=== PATIENT | female | born 1960 | race Caucasian/White ===

== ENCOUNTER 2022-02-22 09:00 | Outpatient (RCR) | payer MEDICARE, MEDICAID, SELFPAY ==
--- NOTE | 2022-02-18 11:44 | ONC.NURNOTE ---
Authorization: User: Asia Donnelly Jorgemigueljacinto Date: 05/01/21 09:28 Type: Eligibility Determination Note... Request received from [facility] for continued authorization of Actemra [id number]. Patient carries Medicare as primary insurance. Per CMS.gov no prior authorization is required for Actemra. Services are based on medical necessity and follows Medicare guidelines.
[2022-02-22 09:19] VITALS: BP 116/78; PULSE 90; RESP 16; TEMP 36.6; O2SAT 97
[2022-02-22] MEDS: SODIUM CHLORIDE 0.9 % (FLUSH) 10 ML SYRINGE IVF (10:00)
[2022-02-22] MEDS: 0.9 % SODIUM CHLORIDE 250 ml IV (10:00)
== END 2022-03-10 23:59 | disposition home or self-care (01) ==
LOC: CCIC 09:00
PROVIDERS: PCP Physician Assistant Medical; Visit Provider Clinical Nurse Specialist
DX: M06.9 Rheumatoid arthritis, unspecified (principal)
CPT/HCPCS: 96413; J3262; J7050

== ENCOUNTER 2022-03-25 09:32 | Emergency (ER) | payer MEDICARE, MEDICAID, SELFPAY ==
[2022-03-25] VITALS (8 sets, daily range): BP systolic 109–132; BP diastolic 70–92; PULSE 83–103; RESP 18–24; TEMP 36.8; O2SAT 94–97; BMI 33.1
[2022-03-25] MEDS: 0.9 % SODIUM CHLORIDE 1000 ml 1,000 ML 6000 ML IV (10:18)
[2022-03-25] MEDS: diphenhydrAMINE 50 MG/ML inj 25 MG IVP (10:20)
[2022-03-25] MEDS: METHYLPREDNISOLONE SOD SUCC 62.5 MG/ML (125) 125 MG IVP (10:24)
--- NOTE | 2022-03-25 10:31 | ED_ITS ---
HPI - General Adult General Time Seen by Provider: 10:31 Date Seen: 03/25/22 Chief complaint: Allergic Reaction Stated complaint: Allergic reaction Time Seen by Provider: 03/25/22 10:04 Source: patient Mode of arrival: ambulatory Limitations: no limitations History of Present Illness HPI narrative: Patient is a 7-year-old female with multiple allergies, who had an MRI scheduled today, got MRI scan dye and started getting some throat symptoms tongue symptoms and a little bit a rash around her neck. No other specific complaints does not really have significant breathing problem, no chest pain, no other weakness or neurologic complaint. She is presents over the ER, an IV line was started, patient is given IV Benadryl which he tolerates and IV Solu-Medrol which she has tolerated the past as well. She does take prednisone 7.5 mg daily. Related Data Home Medications Medication Instructions Recorded Confirmed acetaminophen 500 mg capsule 1,000 mg PO Q6H PRN 02/21/22 02/21/22 alprazolam 0.25 mg tablet 0.5 mg PO BID PRN anxiety 02/21/22 02/21/22 ascorbic acid (vitamin C) 500 mg 1,000 mg PO DAILY 02/21/22 02/21/22 capsule blood sugar diagnostic ([facility] 02/21/22 02/21/22 Ultra Test strips) epinephrine 0.3 mg/0.3 mL 0.3 ml IM Q5-15M PRN 02/21/22 02/21/22 injection, auto-injector erythromycin 5 mg/gram (0.5 %) eye 1 applic ophthalmic (eye) .QHS 02/21/22 02/21/22 ointment estradiol 1 mg tablet 1 mg PO DAILY 02/21/22 02/21/22 folic acid 1 mg tablet 1 mg PO DAILY 02/21/22 02/21/22 ibuprofen 800 mg tablet 800 mg PO TID-QID PRN 02/21/22 02/21/22 [facility]ets [facility]/21/22 02/21/22 Plus Lancet) latanoprost 0.005 % eye drops 1 drp ophthalmic (eye) .qhs 02/21/22 02/21/22 metformin 500 mg tablet,extended 500 mg PO BID 02/21/22 02/21/22 release 24 hr methotrexate sodium 25 mg/mL 25 mg subcut .WEEKLY 02/21/22 02/21/22 injection solution multivitamin 1 tab PO DAILY 02/21/22 02/21/22 nystatin 100,000 unit/gram topical 1 applic topical BID 02/21/22 02/21/22 cream pantoprazole 40 mg tablet,delayed 40 mg PO .Q 24 02/21/22 02/21/22 release prednisone 5 mg tablet 7.5 mg PO DAILY 02/21/22 02/21/22 rosuvastatin 10 mg tablet 10 mg PO .QHS 02/21/22 02/21/22 carbamazepine 200 mg 200 mg PO BID 03/22/22 03/22/22 capsule,extended release [id number] Allergies Allergy/AdvReac Type Severity Reaction Status Date / Time abatacept Allergy Verified 03/25/22 08:37 adalimumab Allergy Verified 03/25/22 08:37 benzyl alcohol Allergy Verified 03/25/22 08:37 bisacodyl Allergy Verified 03/25/22 08:37 bupropion Allergy Verified 03/25/22 08:37 cyclobenzaprine Allergy Verified 03/25/22 08:37 diazepam Allergy Verified 03/25/22 08:37 diphenhydramine Allergy Verified 03/25/22 08:37 duloxetine Allergy Verified 03/25/22 08:37 etanercept Allergy Verified 03/25/22 08:37 gadoterate meglumine Allergy Difficulty Verified 03/25/22 09:52 [From Dotarem] Breathing hydromorphone Allergy Verified 03/25/22 08:37 meperidine Allergy Verified 03/25/22 08:37 morphine Allergy Verified 03/25/22 08:37 oxycodone Allergy Verified 03/25/22 08:37 pregabalin Allergy Verified 03/25/22 08:37 red dye Allergy Verified 03/25/22 08:37 rituximab Allergy Verified 03/25/22 08:37 tromethamine Allergy Verified 03/25/22 08:37 varicella virus vaccine live Allergy Verified 03/25/22 08:37 CI pigment Blue 63 Allergy Uncoded 02/21/22 10:37 Review of Systems Status of ROS: Reports: 6 or more systems reviewed and unremarkable except as noted in History and below [facility] Medical History (Updated 03/25/22 @ 10:34 by Perry Day MD) Abdominal pain Anxiety Atypical chest pain Cephalgia Chronic pain Chronic steroid use Drug allergy, multiple Drug-induced hyperglycemia Dyspnea on exertion Encounter for cholecystectomy Fibromyalgia Fusion of lumbar spine GERD (gastroesophageal reflux disease) Incarcerated umbilical hernia Lumbar radiculopathy Medication intolerance Non-occlusive coronary artery disease Rheumatoid arthritis Serotonin syndrome Syncope Tachycardia Thoracic back pain Surgical History (Updated 02/21/22 @ 21:34 by Sandy Contreras APRN) History of biopsy of temporal artery History of hernia repair History of tonsillectomy Hx of breast reduction, elective S/P lumpectomy of breast S/P DANIELA-BSO Social History Smoking Status: Former smoker How often do you have a drink containing alcohol: never AUDIT-C Alcohol total score: 0 Non-prescribed substance use: denies use Exam Narrative: Exam Narrative: Objective: Patient is alert orient x3, noncyanotic HEENT is unremarkable no tongue swelling, no throat tightening Lungs are clear Good peripheral perfusion noted, patient is alert or x3 in no distress Vital signs show an O2 sat 97% on room air Skin is warm and dry no significant rashes Const: Vital Signs, click to edit/add: Vital Signs - 24 hr 03/25/22 09:39 03/25/22 10:33 03/25/22 10:15 Temperature 98.2 F Pulse Rate [Apical ] 103 H 96 87 Respiratory Rate 24 18 18 Blood Pressure [Ri ght Upper Arm] 132/92 H 130/87 123/88 Pulse Oximetry 97 97 94 Oxygen Delivery Me thod Room Air Room Air Room Air 03/25/22 10:00 03/25/22 09:45 03/25/22 10:45 Temperature Pulse Rate [Apical ] 91 99 83 Respiratory Rate 18 18 Blood Pressure [Ri ght Upper Arm] 109/90 H 125/91 H 121/70 Pulse Oximetry 95 96 95 Oxygen Delivery Me thod Room Air Room Air Room Air 03/25/22 11:15 03/25/22 11:30 Temperature Pulse Rate [Apical ] 84 87 Respiratory Rate 20 Blood Pressure [Ri ght Upper Arm] 112/71 125/79 Pulse Oximetry 95 95 Oxygen Delivery Me thod Room Air Room Air Course Vital Signs Vital signs: Initial Vital Signs Temperature 98.2 F 03/25/22 09:39 Temperature Source Temporal Artery Scan 03/25/22 09:39 Pulse Rate 103 H 03/25/22 09:39 Pulse Rhythm 03/25/22 09:39 Respiratory Rate 24 03/25/22 09:39 Blood Pressure 132/92 H 03/25/22 09:39 Blood Pressure Mean 105 03/25/22 09:39 Pulse Oximetry 97 03/25/22 09:39 Oxygen Delivery Method 03/25/22 09:39 Vital Signs Temperature 98.2 F 03/25/22 09:39 Pulse Rate 103 H 03/25/22 09:39 Respiratory Rate 24 03/25/22 09:39 Blood Pressure 132/92 H 03/25/22 09:39 Pulse Oximetry 97 03/25/22 09:39 Oxygen Delivery Method 03/25/22 09:39 Temperature 98.2 F 03/25/22 09:39 Pulse Rate 87 03/25/22 11:30 Respiratory Rate 20 03/25/22 11:15 Blood Pressure 125/79 03/25/22 11:30 Pulse Oximetry 95 03/25/22 11:30 Oxygen Delivery Method 03/25/22 11:30 Medical Decision Making MDM Narrative Medical decision making narrative: Patient has a history of significant allergies, potentially is allergic to the contrast media in the MRI, will give Solu-Medrol and Benadryl now IV. She apparently does not tolerate Benadryl orally. She can double her prednisone dose for 2-3 days and then return to normal dosing, will observe her in the ED for a period of time. Discharge Plan Discharge Clinical Impression: Drug allergy, multiple, Allergic reaction Patient Disposition: Home w/ Parent or Adult Condition: Improved Additional Instructions: Would have the patient double her normal steroid dose for 2-3 days and then return to normal dosing. Update her regular physician as needed, return to the ED as needed. She lives close the hospital in is able to return with good assistance in her home. She has had no further issues. She was doing MRI for headache and numbness, and they were able to complete the MRI. Activity Level: Light activity Discharge Diet: Regular Prescriptions: No Action carbamazepine 200 mg capsule, ER multiphase 12 hr 200 mg PO BID alprazolam 0.25 mg tablet 0.5 mg PO BID PRN (Reason: anxiety) Label Comments: TAKE 1 TO 2 TABLETS BY MOUTH TWICE DAILY NEEDED FOR ANXIETY (DME) OneTouch Ultra Test Strip MISCELLANEOUS Label Comments: TEST FOUR TIMES DAILY estradiol 1 mg tablet 1 mg PO DAILY folic acid 1 mg tablet 1 mg PO DAILY Label Comments: TAKE 1 TABLET BY MOUTH DAILY. latanoprost 0.005 % drops 1 drp OPHTHALMIC (EYE) .qhs Label Comments: INSTILL 1 DROP IN EACH EYE AT BEDTIME (DME) lancets [OneTouch Delica Plus Lancet] 33 gauge misc MISCELLANEOUS Label Comments: TEST FOUR TIMES DAILY metformin 500 mg tablet extended release 24 hr 500 mg PO BID Label Comments: TWICE A DAY WITH MEALS methotrexate sodium 25 mg/mL solution 25 mg subcut .WEEKLY nystatin 100,000 unit/gram cream 1 applic TOPICAL BID Label Comments: APPLY TOPICALLY TO THE AFFECTED AREA TWICE DAILY pantoprazole 40 mg tablet,delayed release (DR/EC) 40 mg PO .Q 24 Label Comments: TAKE 1 TABLET BY MOUTH TWICE DAILY BEFORE MEALS prednisone 5 mg tablet 7.5 mg PO DAILY rosuvastatin 10 mg tablet 10 mg PO .QHS multivitamin Tablet 1 tab PO DAILY ibuprofen 800 mg tablet 800 mg PO TID-QID PRN acetaminophen 500 mg capsule 1,000 mg PO Q6H PRN ascorbic acid (vitamin C) 500 mg capsule 1,000 mg PO DAILY epinephrine 0.3 mg/0.3 mL auto-injector 0.3 ml IM Q5-15M PRN Rx Instructions: do not exceed 3 doses per episode erythromycin 5 mg/gram (0.5 %) ointment 1 applic ophthalmic (eye) .QHS Follow Up/Referrals: Amarilys Duckworth PA-C [Primary Care Provider] - Stand Alone [facility]
== END 2022-03-25 11:49 | disposition home or self-care (01) ==
PROVIDERS: Emergency Provider Family Medicine; PCP Physician Assistant Medical
DX: T78.40XA Allergy, unspecified, initial encounter (principal); R51.9 Headache, unspecified
CPT/HCPCS: 70553; 96374; 96375; 99284; J1200; J2930; J7030

== ENCOUNTER 2022-06-19 09:00 | Outpatient (RCR) | payer MEDICARE, MEDICAID, SELFPAY ==
[2022-03-22 09:00] VITALS: BP 128/84; PULSE 91; RESP 16; TEMP 36.1; O2SAT 97
--- NOTE | 2022-03-22 15:23 | ONC.NURNOTE ---
[facility].
[2022-04-19 09:02] VITALS: BP 123/83; PULSE 89; RESP 16; TEMP 35.9; O2SAT 97
[2022-04-19] MEDS: SODIUM CHLORIDE 0.9 % (FLUSH) 10 ML SYRINGE IVF (09:26)
--- NOTE | 2022-04-24 11:25 | URNOTE ---
Received request prior auth for Actemra ([id number]). Pt has medicare and [facility] [place]. Per [employer] on behalf of [facility], this has been approved, Actemra 80mg/4ml vial, 686mg administered for frequency of 4 week, 120.050 units (14 doses). 04/25/2022-.
[2022-05-22 10:00] VITALS: BP 139/90; PULSE 76; RESP 14; TEMP 36.1; O2SAT 96
[2022-05-22] MEDS: SODIUM CHLORIDE 0.9 % (FLUSH) 10 ML SYRINGE IVF (13:57)
[2022-06-19 09:05] VITALS: BP 120/83; PULSE 79; RESP 16; TEMP 36.1; O2SAT 95
[2022-06-19] MEDS: 0.9 % SODIUM CHLORIDE 500 ML IV (10:03)
[2022-06-19 10:30] VITALS: BP 150/102; PULSE 100; RESP 24; TEMP 36.1; O2SAT 98
[2022-06-19] MEDS: METHYLPREDNISOLONE SOD SUCC 62.5 MG/ML (125) 100 MG IVP (10:30)
[2022-06-19] MEDS: 0.9 % SODIUM CHLORIDE 1000 ml 1,000 ML 200 ML IV (10:30)
[2022-06-19 10:33] VITALS: BP 158/88
[2022-06-19] MEDS: ONDANSETRON 2 MG/ML inj 4 MG IVP (10:33)
[2022-06-19 10:35] VITALS: BP 139/95; PULSE 84; RESP 20; O2SAT 98
[2022-06-19] MEDS: HYDROmorphone 0.5 mg/0.5 ml inj 0.2 MG IVP (10:40)
[2022-06-19 10:42] VITALS: BP 132/92; PULSE 90; RESP 22; O2SAT 96
[2022-06-19 11:14] VITALS: BP 134/85; PULSE 87; O2SAT 96
--- NOTE | 2022-06-19 15:17 | PC.NURSE ---
Actemra reaction Pt was present at [facility] today for Actemra infusion. Pt hasn't been getting pre-meds and has been tolerating it very well. After chart review and double check, the infusion was started. RN circled back to check in about 10 minutes into the infusion and pt was having severe pain from her waist up. Pt was visibly distraught and couldn't sit still due to the intense pain. Infusion was stopped and normal saline was started on new tubing. Vital signs obtained (see flowsheet). [facility] senior staff psychologist's to assist along with Sandy Contreras APRN. Reviewed orders. Noted order for solu-medrol as needed. Called pharmacy and received a dose of 100 mg which was given. See MAR. ORLANDO Delgado also gave orders for Zofran and Dilaudid to be given to manage pt's pain and adverse reaction to narcotics. After about 15 minutes pt calmed down and her pain subsided. Pt's was at her bedside. RN reached out to the rheumatology office at [facility] attempting to communicate this situation with Jamie López NP, ordering provider. Provided detailed info to the staff who answered my call. Multiple messages were given to the [employer], however, this blurb writer did not get a call back. Ultimately, RN was told by the phone answering staff that Jamie López NP recommended not proceeding with further infusion today. IV was removed and patient was discharged. This blurb writer called back with questions about when to do next infusion and whether or not to do pre-medications. Did not receive a call back. At 1520, called again and asked that Jamie López NP or her direct care staffer call and provide pt with next steps and instructions. They verbalized that they would take it from here. Carol Evans RN
--- NOTE | 2022-06-24 09:38 | PC.NURSE ---
Called pt today to check in after her infusion reaction last week. LM on pt's primary line inviting her to call back with updates. RN also inquired about whether or not pt had heard from [facility] with regards to next steps with her infusions.
--- NOTE | 2022-07-02 09:27 | ONC.NURNOTE ---
Pt called today stating she saw her paver operator yesterday and she will not be receiving any more Actemra infusions at this time.
== END 2022-09-18 23:59 | disposition home or self-care (01) ==
LOC: CCIC 09:00
PROVIDERS: PCP Physician Assistant Medical; Referring Provider Physician Assistant Medical; Visit Provider Clinical Nurse Specialist
DX: M06.9 Rheumatoid arthritis, unspecified (principal); T78.40XA Allergy, unspecified, initial encounter; Z88.9 Allergy status to unspecified drugs, medicaments and biological substances
CPT/HCPCS: 96361; 96365; 96366; 96376; 96413; 99211; 99214; J1170; J2405; J2930; J3262; J7030; J7120

== ENCOUNTER 2022-08-24 14:52 | Outpatient (CLI) | payer MEDICARE, MEDICAID, SELFPAY | END 2022-08-24 14:53 | disposition home or self-care (01) | LOC: AMB 08-25 00:51 | PROVIDERS: PCP Physician Assistant Medical; Visit Provider Emergency Medicine Emergency Medical Services | DX: S39.92XA Unspecified injury of lower back, initial encounter (principal); W10.9XXA Fall (on) (from) unspecified stairs and steps, initial encounter; Y92.008 Other place in unspecified non-institutional (private) residence as the place of occurrence of the external cause | CPT/HCPCS: A0425; A0433 ==

== ENCOUNTER 2022-08-24 15:30 | Emergency (ER) | payer MEDICARE, MEDICAID, SELFPAY ==
[2022-08-24] VITALS (7 sets, daily range): BP systolic 101–106; BP diastolic 60–77; PULSE 89–110; RESP 16–20; TEMP 35.8; O2SAT 91–97; BMI 34.2
--- NOTE | 2022-08-24 16:28 | CRLHL7_ITS ---
For Patients: As a result of the Cures Act, medical imaging exams and procedure reports are released immediately into your electronic medical record. You may view this report before your referring provider. If you have questions, please contact your health care provider. INDICATION: Fall. COMPARISON: 24 June 2022. TECHNIQUE: Two views. IMPRESSION: New from comparison superior endplate compression fracture L1 with less than 50 percent height loss. No posterior buckling. Pedicle antoinette and screw fixation L3-4. Interbody implants L4-5 and L5-S1. No hardware complication. Dictated by Suman Schwartz MD @ 08/24/2022 5:27:04 PM (Electronically Signed)
--- NOTE | 2022-08-24 16:28 | CRLHL7_ITS ---
For Patients: As a result of the Cures Act, medical imaging exams and procedure reports are released immediately into your electronic medical record. You may view this report before your referring provider. If you have questions, please contact your health care provider. INDICATION: Fall. TECHNIQUE: One view pelvis. IMPRESSION: No acute fracture. Moderate degenerative arthrosis symphysis pubis. Hips are appropriately aligned. Dictated by Suman Schwartz MD @ 08/24/2022 5:29:47 PM (Electronically Signed)
--- NOTE | 2022-08-24 16:30 | ED_ITS ---
HPI - Fall General Chief Complaint: Fall/Minor Trauma Stated Complaint: Traumatic injury Time Seen by Provider: 08/24/22 15:36 History of Present Illness HPI Narrative: This 62-year-old female comes in with right posterior low back pain and pelvis pain. She was coming down steps and states that her knee gave out on the last step. She fell onto her buttocks. She did not hit her head or have loss of consciousness. She has not been up to ambulate since this fall and has significant pain in her right low back and pelvis posteriorly. She is able to raise each leg from the bed. She does not report any other injury. Related Data Home Medications Medication Instructions Recorded Confirmed acetaminophen 500 mg capsule 1,000 mg PO Q6H PRN 02/21/22 08/24/22 alprazolam 0.25 mg tablet 0.5 mg PO BID PRN anxiety 02/21/22 08/24/22 ascorbic acid (vitamin C) 500 mg 1,000 mg PO DAILY 02/21/22 08/24/22 capsule blood sugar diagnostic ([facility] 02/21/22 02/21/22 Ultra Test strips) epinephrine 0.3 mg/0.3 mL 0.3 ml IM Q5-15M PRN 02/21/22 08/24/22 injection, auto-injector erythromycin 5 mg/gram (0.5 %) eye 1 applic ophthalmic (eye) .QHS 02/21/22 08/24/22 ointment estradiol 1 mg tablet 1 mg PO DAILY 02/21/22 08/24/22 folic acid 1 mg tablet 1 mg PO DAILY 02/21/22 08/24/22 ibuprofen 800 mg tablet 800 mg PO TID-QID PRN 02/21/22 08/24/22 lancets 33 gauge ([facility] 02/21/22 02/21/22 Plus Lancet) latanoprost 0.005 % eye drops 1 drp ophthalmic (eye) .qhs 02/21/22 08/24/22 metformin 500 mg tablet,extended 500 mg PO BID 02/21/22 08/24/22 release 24 hr methotrexate sodium 25 mg/mL 25 mg subcut .WEEKLY 02/21/22 08/24/22 injection solution multivitamin 1 tab PO DAILY 02/21/22 08/24/22 nystatin 100,000 unit/gram topical 1 applic topical BID 02/21/22 08/24/22 cream pantoprazole 40 mg tablet,delayed 40 mg PO .Q 24 02/21/22 08/24/22 release prednisone 5 mg tablet 7.5 mg PO DAILY 02/21/22 08/24/22 rosuvastatin 10 mg tablet 10 mg PO .QHS 02/21/22 08/24/22 carbamazepine 200 mg 200 mg PO BID 03/22/22 08/24/22 capsule,extended release [id number] Previous Rx's Medication Instructions Recorded tramadol 50 mg tablet 50 mg PO Q6H PRN pain #15 tabs 08/24/22 Allergies Allergy/AdvReac Type Severity Reaction Status Date / Time abatacept Allergy Verified 08/24/22 15:44 adalimumab Allergy Verified 08/24/22 15:44 benzyl alcohol Allergy Verified 08/24/22 15:44 bisacodyl Allergy Verified 08/24/22 15:44 bupropion Allergy Verified 08/24/22 15:44 carbamazepine Allergy Cramping Verified 08/24/22 15:44 of the Muscles cyclobenzaprine Allergy Verified 08/24/22 15:44 diazepam Allergy Verified 08/24/22 15:44 diphenhydramine Allergy Verified 08/24/22 15:44 duloxetine Allergy Verified 08/24/22 15:44 etanercept Allergy Verified 08/24/22 15:44 gadoterate meglumine Allergy Difficulty Verified 08/24/22 15:44 [From Dotarem] Breathing hydromorphone Allergy Verified 08/24/22 15:44 meperidine Allergy Verified 08/24/22 15:44 morphine Allergy Verified 08/24/22 15:44 oxycodone Allergy Verified 08/24/22 15:44 pregabalin Allergy Verified 08/24/22 15:44 red dye Allergy Verified 08/24/22 15:44 rituximab Allergy Verified 08/24/22 15:44 tromethamine Allergy Verified 08/24/22 15:44 varicella virus vaccine live Allergy Verified 08/24/22 15:44 Review of Systems Status of ROS: Reports: 10 or more systems reviewed and unremarkable except as noted in History and below Narrative: Constitutional: No fevers, no weight gain or loss. Eyes: No discharge. No vision changes. HENT: No congestion, no sore throat, no ear pain. Cardiovascular: No chest pain, no palpitations. Respiratory: No shortness of breath, no wheezes, no cough. Gastrointestinal: No abdominal pain, no vomiting, no diarrhea. Genitourinary: No dysuria, no hematuria. Musculoskeletal: Low back and pelvis pain as described above. Skin: No rashes, no pruritis. Neurological: No dizziness, weakness, sensory change, speech change. Endo/Heme/Allergies: No bruising or bleeding. No polydipsia. Pysch: no suicidality, no anxiety, no insomnia. All other systems reviewed and are negative. [facility] Medical History (Updated 08/24/22 @ 18:19 by Lukasz Jim MD) Abdominal pain Anxiety Atypical chest pain Cephalgia Chronic pain Chronic steroid use Drug allergy, multiple Drug-induced hyperglycemia Dyspnea on exertion Encounter for cholecystectomy Fibromyalgia Fusion of lumbar spine GERD (gastroesophageal reflux disease) Incarcerated umbilical hernia Lumbar radiculopathy Medication intolerance Non-occlusive coronary artery disease Rheumatoid arthritis Serotonin syndrome Syncope Tachycardia Thoracic back pain Surgical History (Updated 02/21/22 @ 21:34 by Sandy Contreras APRN) History of biopsy of temporal artery History of hernia repair History of tonsillectomy Hx of breast reduction, elective S/P lumpectomy of breast S/P DANIELA-BSO Social History Smoking Status: Former smoker How often do you have a drink containing alcohol: never AUDIT-C Alcohol total score: 0 Non-prescribed substance use: denies use Exam Narrative: Exam Narrative: Constitutional: Well-developed, well-nourished, no acute distress. HEENT: Normocephalic, atraumatic. Neck: Normal range of motion. Nontender. Supple. Heart: Regular. No murmurs. Normal rate. Intact distal pulses. Lungs: Clear to auscultation. No chest discomfort. No wheezes, rhonchi, or rales. Abdomen: Normal bowel sounds. Nontender. No rebound tenderness. Genitalia: Deferred. Back: No midline tenderness. Pain is located in the right low back and buttock region. No pain when log-rolling either leg. She is able to lift each leg from the bed. Extremities: Normal range of motion. No injury. Skin: Intact. No rash. Warm. No erythema or pallor. Neurologic: No altered sensation. No weakness. Alert and oriented. Psychiatric: No suicidality. No anxiety or depression. No insomnia. Nursing notes and vitals signs are reviewed. Const: Vital Signs, click to edit/add: Vital Signs - 24 hr 08/24/22 15:36 Temperature 96.5 F L Pulse Rate [Left P ulse Oximeter] 93 Respiratory Rate 20 Blood Pressure [Ri ght Upper Arm] 106/77 Pulse Oximetry 94 Oxygen Delivery Me thod Room Air Course Vital Signs Vital signs: Initial Vital Signs Temperature 96.5 F L 08/24/22 15:36 Temperature Source Temporal Artery Scan 08/24/22 15:36 Pulse Rate 93 08/24/22 15:36 Respiratory Rate 20 08/24/22 15:36 Blood Pressure 106/77 08/24/22 15:36 Blood Pressure Mean 86 08/24/22 15:36 Blood Pressure Position Left Lateral 08/24/22 15:36 Pulse Oximetry 94 08/24/22 15:36 Oxygen Delivery Method 08/24/22 15:36 Vital Signs Temperature 96.5 F L 08/24/22 15:36 Pulse Rate 93 08/24/22 15:36 Respiratory Rate 20 08/24/22 15:36 Blood Pressure 106/77 08/24/22 15:36 Pulse Oximetry 94 08/24/22 15:36 Oxygen Delivery Method 08/24/22 15:36 Temperature 96.5 F L 08/24/22 15:36 Pulse Rate 93 08/24/22 15:36 Respiratory Rate 20 08/24/22 15:36 Blood Pressure 106/77 08/24/22 15:36 Pulse Oximetry 94 08/24/22 15:36 Oxygen Delivery Method 08/24/22 15:36 MDM - Fall MDM Narrative Medical decision making narrative: This patient comes in in with significant discomfort after a fall that occurred just prior to arrival. She received an intramuscular injection of Dilaudid 1 mg which brought sufficient relief to her symptoms. X-ray imaging of the pelvis shows no new findings but the lumbar spine does show a new L1 compression fracture. The patient was able to get up and ambulate to the bathroom. She is okay to return home. She does have many medications that are in her allergy list. She states that she does not tolerate pain medicines well. She has taken tramadol in the past so this was prescribed for her. Imaging Data XR Lumbar Spine: Radiologist's impression: New from comparison superior endplate compression fracture L1 with less than 50 percent height loss. No posterior buckling. Pedicle antoinette and screw fixation L3-4. Interbody implants L4-5 and L5-S1. No hardware complication. XR Pelvis: Radiologist's impression: No acute fracture. Moderate degenerative arthrosis symphysis pubis. Hips are appropriately aligned. Discharge Plan Discharge Clinical Impression: Compression fracture Patient Disposition: Home w/ Parent or Adult Condition: Stable Additional Instructions: Take medication as needed and indicated. Follow up with MD for ongoing management. Return if worsening. Prescriptions: New tramadol 50 mg tablet 50 mg PO Q6H PRN (Reason: pain) Qty: 15 0RF No Action carbamazepine 200 mg capsule, ER multiphase 12 hr 200 mg PO BID alprazolam 0.25 mg tablet 0.5 mg PO BID PRN (Reason: anxiety) Label Comments: TAKE 1 TO 2 TABLETS BY MOUTH TWICE DAILY NEEDED FOR ANXIETY. Takes daily at bedtime per pt report, 06/19/22m (DME) OneTouch Ultra Test Strip MISCELLANEOUS Label Comments: TEST FOUR TIMES DAILY estradiol 1 mg tablet 1 mg PO DAILY folic acid 1 mg tablet 1 mg PO DAILY Label Comments: TAKE 1 TABLET BY MOUTH DAILY. latanoprost 0.005 % drops 1 drp OPHTHALMIC (EYE) .qhs Label Comments: INSTILL 1 DROP IN EACH EYE AT BEDTIME (DME) lancets [OneTouch Delica Plus Lancet] 33 gauge [facility] MISCELLANEOUS Label Comments: TEST FOUR TIMES DAILY metformin 500 mg tablet extended release 24 hr 500 mg PO BID Label Comments: TWICE A DAY WITH MEALS methotrexate sodium 25 mg/mL solution 25 mg subcut .WEEKLY nystatin 100,000 unit/gram cream 1 applic TOPICAL BID Label Comments: APPLY TOPICALLY TO THE AFFECTED AREA TWICE DAILY pantoprazole 40 mg tablet,delayed release (DR/EC) 40 mg PO .Q 24 Label Comments: TAKE 1 TABLET BY MOUTH TWICE DAILY BEFORE MEALS prednisone 5 mg tablet 7.5 mg PO DAILY rosuvastatin 10 mg tablet 10 mg PO .QHS multivitamin Tablet 1 tab PO DAILY ibuprofen 800 mg tablet 800 mg PO TID-QID PRN acetaminophen 500 mg capsule 1,000 mg PO Q6H PRN ascorbic acid (vitamin C) 500 mg capsule 1,000 mg PO DAILY epinephrine 0.3 mg/0.3 mL auto-injector 0.3 ml IM Q5-15M PRN Rx Instructions: do not exceed 3 doses per episode erythromycin 5 mg/gram (0.5 %) ointment 1 applic ophthalmic (eye) .QHS Follow Up/Referrals: Amarilys Duckworth PA-C [Primary Care Provider] - Stand Alone Forms: [employer] Info Instructions
[2022-08-24] MEDS: HYDROmorphone 0.5 mg/0.5 ml inj 1 MG IM (16:42)
== END 2022-08-24 18:37 | disposition home or self-care (01) ==
PROVIDERS: Emergency Provider Emergency Medicine Emergency Medical Services; PCP Physician Assistant Medical
DX: S32.010A Wedge compression fracture of first lumbar vertebra, initial encounter for closed fracture (principal); W10.9XXA Fall (on) (from) unspecified stairs and steps, initial encounter
CPT/HCPCS: 72100; 72170; 96372; 99284; J1170

== ENCOUNTER 2022-12-04 09:00 | Outpatient (RCR) | payer MEDICARE, MEDICAID, SELFPAY | END 2023-04-03 23:59 | disposition home or self-care (01) | PROVIDERS: PCP Physician Assistant Medical; Visit Provider Physician Assistant Medical | DX: S46.011D Strain of muscle(s) and tendon(s) of the rotator cuff of right shoulder, subsequent encounter (principal); M25.511 Pain in right shoulder; M25.811 Other specified joint disorders, right shoulder; Z51.89 Encounter for other specified aftercare | CPT/HCPCS: 97110; 97140; 97162 ==

== ENCOUNTER 2024-07-05 10:48 | Emergency (ER) | payer MEDICARE, MEDICAID, SELFPAY ==
[2024-07-05 11:05] VITALS: BP 128/86; PULSE 109; RESP 18; TEMP 36.7; O2SAT 97; BMI 29.8
--- NOTE | 2024-07-05 12:06 | CRLHL7_ITS ---
For Patients: As a result of the Century Cures Act, medical imaging exams and procedure reports are released immediately into your electronic medical record. You may view this report before your referring provider. If you have questions, please contact your health care provider. INDICATION: Upper abdominal pain/nausea TECHNIQUE: CT abdomen and pelvis without contrast. COMPARISON: CT abdomen pelvis 03/05/2021. FINDINGS: Lower chest: Unremarkable. Liver: Unremarkable. Gallbladder and bile ducts: Cholecystectomy. No biliary ductal dilation. Pancreas: Unremarkable. Spleen: Unremarkable. Adrenal glands: Unremarkable. Kidneys: New contour deformity of the posterior inferior aspect of the left kidney (). GI tract: No obstruction. Diverticulosis without diverticulitis. Vasculature: Abdominal aorta is normal in caliber. Mild aortic atherosclerosis. Lymph nodes: No lymphadenopathy. Peritoneum/Abdominal Wall: Umbilical hernia repair. No sign of mass or infiltration. No free air or significant free fluid. Pelvis: Hysterectomy. Bones: Mild compression deformity of L1. L3-L4 PSIF. Interbody disc spacers at L3-L4, L4-L5 and L5-S1. IMPRESSION: No acute intra-abdominal or intrapelvic pathology to explain symptoms. New contour deformity of the posterior inferior aspect of the left kidney is concerning for underlying renal lesion. Consider further evaluation with renal ultrasound. Mild compression deformity of L1 is age indeterminate, but likely chronic. Please note that all CT scans at this facility use dose modulation, iterative reconstruction, and/or weight-based dosing when appropriate to reduce radiation dose to as low as reasonably achievable. Dictated by Alem Otto MD @ 07/05/2024 1:28:43 PM (Electronically Signed)
--- OUTSIDE RECORDS SUMMARY | 2024-07-05 12:23 | XMS_ITS | Clinical Summary ---
Author Organization [facility] Address [address] [place] [address] Care Team Providers Care Pad Tufter Name Role Phone Elsewhere, Pcp Primary Care Provider Unavailabl e Source Comments Patient records contain information from all sites at [facility]. For routine questions regarding patient records, call [phone] during business hours, M-F 8:00 AM - 5:00 PM Central Time. Record requests for emergency care only can be directed to [phone] at any time.[facility] Allergies Active Allergy Reactions Criticality Noted Date Comments Abatacept Anaphylaxis 11/11/2011 MICS lists: dizziness, swelling, paraesthesia, throat closing Adalimumab Shortness of breath (Reselect Reaction) 01/14/2014 MICS lists: respiratory distress Bisacodyl Other (see comments) High 12/07/2018 Dulcolax causes lip and tongue burning and felt like a lump in throat -seen at the ER Blue Dye Other (see comments) 06/12/2021 CI Pigment Blue 63 Tremors/shaking/elev ated BP and heart rate (sinus tachycardia) CI Pigment Blue 63 -Associated with Cymbalta - tremors / shaking / elevated BP and heart rate with sinus tachycardia Bupropion Anaphylaxis 11/06/2013 BUPROPION - Throat, swelling closing. Cyclobenzaprine Nausea And Vomiting 05/31/2016 Diazepam Rash 11/13/2009 Diphenhydramine Anaphylaxis High 10/12/2019 Diphenhydramine-Pseudoe phed Other (see comments) 12/01/2018 Benadryl causes tingling in lips. Lump in throat. Tolerates IV Benadryl Successful challenge to dye free cetrizine on 11/13/20 Duloxetine Other (see comments) 04/13/2015 Tremors, shaking, tachycardia, hypertension Duloxetine Hcl Other (see comments) 02/28/2023 Etanercept GI intolerance,Cough,H ypertension 11/08/2011 MICS lists: cough, lump in throat, nausea, HTN Gabapentin Nausea Only,Rash High 06/12/2021 Was instructed by primary not to take this medication Gadoterate Meglumine Other (see comments) 03/18/2023 Hydromorphone Nausea And Vomiting 11/08/2011 Iodinated Contrast Media Anaphylaxis,Other (see comments),Shortness of breath (Reselect Reaction) High 12/26/2020 Pt was given OMNI 350. Due to the extent of the allergic reaction pt is unable to have contrast in the future. Meperidine Rash 11/13/2009 Morphine Rash 11/13/2009 Oxycodone GI intolerance 11/06/2013 OXYCODONE Pregabalin Anaphylaxis 11/06/2013 LYRICA - Throat, tightening Red Dye Other (see comments) High 10/12/2019 Lump in throat and blood pressure goes up Rituximab Other (see comments) 10/12/2019 Varicella-Zoster Ge-As01b (Pf) Anaphylaxis 04/19/2019 Reaction to 2nd shot. Throat closing. Tocilizumab Other (see comments) 07/02/2022 All over body pain / muscle spasm Triamcinolone Other (see comments) 10/20/2020 Tight throat, shortness of breath Tromethamine Other (see comments) 10/12/2019 Varicella Vaccines Other (see comments) 10/12/2019 Varicella-Zoster Immune Globulin (Human) Anaphylaxis High 02/28/2023 Medications ALPRAZolam (XANAX) 0.25 mg tablet Take 1-2 tablets by mouth daily as needed. RA 02/01/20 15 Active rosuvastatin (CRESTOR) 10 mg tablet Take 1 tablet by mouth daily. 03/04/20 17 Active EPINEPHrine 0.3 mg/0.3 mL injection syringe Inject intramuscularly as needed. unknown 03/23/20 10 Active ibuprofen (ADVIL,MOTRIN) 800 mg tablet Take by mouth as needed. unknown 03/23/20 10 Active ondansetron (ZOFRAN) 4 mg tablet Take 1 tablet by mouth every 8 (eight) hours as needed. nausea 02/01/20 15 Active pantoprazole (PROTONIX) 40 mg EC tablet Take 1 tablet by mouth 2 (two) times a day. 02/01/20 15 Active blood sugar diagnostic strips 1 each. 11/20/19 18 Active blood-glucose meter kit Dispense glucose meter, test strips and lancets covered by the patient insurance. Test 3-4 times per day. 03/27/20 12 Active acetaminophen (TYLENOL) 500 mg tablet Take 500 mg by mouth as needed. Active erythromycin (ROMYCIN) 5 mg/gram (0.5 %) ophthalmic ointment as needed. 3 11/24/19 19 Active incontinence pad, liner, disp pad as needed. 08/22/19 18 Active triamcinolone (KENALOG) 0.1 % cream Apply topically as needed. 05/13/20 14 Active HYDROmorphone (DILAUDID) 2 mg tablet Take 1-2 mg by mouth as needed. 05/18/20 19 Active latanoprost (XALATAN) 0.005 % ophthalmic solution at bedtime. 04/10/20 20 Active ascorbic acid, vitamin C, (VITAMIN C) 1,000 mg tablet Take 1,000 mg by mouth daily. 11/15/19 20 Active multivitamin tablet Take 1 tablet by mouth. 11/15/19 20 Active fluconazole (DIFLUCAN) 150 mg tablet as needed. 04/26/20 20 Active safety needles 27 x 5/8 needleIndicati ons:Arthritis Rheumatoid (HCC) For use with injectable methotrexate 100 each 10/06/19 21 Active diclofenac sodium (VOLTAREN) 1 % gel Apply 4 g topically 4 (four) times a day as needed (to areas of arthritic pain). 100 g 1 10/14/19 21 Active folic acid 0.25 mg tablet Daily Activ e Systane GeL 0.4-0.3 % ophthalmic gel 02/23/20 21 Active tiZANidine (ZANAFLEX) 2 mg tablet Take 2 mg by mouth. 03/07/20 21 Active fluticasone propionate (FLOVENT HFA) 110 mcg/actuation inhaler Inhale 1 puff 2 (two) times a day. 07/16/20 21 Active hydrOXYzine (VISTARIL) 25 mg capsule Take 25 mg by mouth. 06/19/20 21 Active nystatin (MYCOSTATIN) 100,000 unit/gram cream Apply 1 application topically 2 (two) times a day. To affected area. 10/22/19 22 Active estradioL (ESTRACE) 1 mg tablet Take 1 mg by mouth. 08/20/19 22 Active metFORMIN XR (GLUCOPHAGE-XR ) 500 mg 24 hr tablet Take 500 mg by mouth 2 (two) times a day with meals. 01/14/20 22 Active OXcarbazepine (TRILEPTAL) 300 mg tablet Take 300 mg by mouth 2 (two) times a day. 03/30/20 22 Active amitriptyline 2%,ketamine 0.5%,lidocaine 2% -lipodermIndic ations:Arthrit is Rheumatoid (HCC),Fibromya lgia,Osteoarth ritis Apply topically 2 (two) times a day. Apply to feet twice daily for nerve pain 480 g 10/22/19 23 Active baclofen (LIORESAL) 10 mg tablet Take 1 tablet by mouth 2 (two) times a day. 02/04/20 23 Active BD Tuberculin Syringe 1 mL 27 x 1/2 syringe See Admin Instructions. 12/05/19 23 Active Research IRB [id number] predniSONE 5 mg capsule Active methotrexate 25 mg/mL injectionIndic ations:Arthrit is Rheumatoid (HCC) Inject 1 mL (25 mg total) under the skin every 7 (seven) days. 12 mL 1 03/22/20 24 Active predniSONE (Deltasone) 5 mg tabletIndicati ons:Arthritis Rheumatoid (HCC) Take 1.5 tablets (7.5 mg total) by mouth daily. Use once taper complete. 135 tablet 3 03/22/20 24 Active Active Problems Problem Noted Date Diagnosed Date Fibromyalgia 10/18/2022 Fracture Lumbar First Wedge Compression Sequela 10/18/2022 COVID-19 Infection 09/03/2021 Allergy Drug Personal History 01/26/2019 Arthritis Rheumatoid 11/13/2009 Pain Hand Bilateral Immunizations Name Administration Dates Next Due Influenza, Unspecified 07/23/2000 Td (Adult), adsorbed 02/13/2006,09/10/1995 Tdap 08/12/2005 Family History Medical History Relation Name Comments Coronary artery disease Father Mane Grewal Lung cancer Father Mane Grewal Transient ischemic attack Father Mane Grewal Colon polyps Mother Cody Grewal Lung cancer Mother Cody Grewal Migraines Mother Cody Grewal Skin cancer Sister 1 Skin cancer Sister 2 Shelly Relation Name Status Comments Father Mane Grewal Mother Cody Grewal Sister 1 Sister 2 Shelly Social History Tobacco Use Types Packs/Day Years Used Date Smoking Tobacco: Former Cigarettes 0 0 08/25/2000 - 08/25/2000 Smokeless Tobacco: Never Tobacco Cessation:Counseling Given: Not Answered Alcohol Use Standard Drinks/Week Comments No 0 (1 standard drink = 0.6 oz pur e alcohol) Humiliation, Afraid, Rape, and Kick questionnair e Answer Date Recorded Within the last year, have y ou been afraid of your partner or ex-partner? No 02/24/2023 Within the last year, have y ou been humiliated or emotionally abused in other ways by your partner or ex-partner? No Within the last year, have y ou been kicked, hit, slapped, or otherwise physically hurt by your partner or ex-partner? No 02/24/2023 Within the last year, have y ou been raped or forced to have any kind of sexual activity by your partner or ex-partner? No 02/24/2023 Social Connection and Isolation Panel [NHANES] A nswer Date Recorded In a typical week, how many times do you talk on the phone with family, friends, or neighbors? Twice a week 06/11/20 How often do you get togethe r with friends or relatives? Once a week 06/11/2022 How often do you attend [facility] or [facility] services? 1 to 4 times per year 06/11/2022 Do you belong to any clubs o r organizations such as lutheran groups, unions, fraternal or athletic groups, or school groups? No 06/11/2022 How often do you attend meet ings of the clubs or organizations you belong to? Never 06/11/2022 Are you , , di vorced, , never , or living with a partner? 06/11/2022 AUDIT-C Answer Date Recorded Q1: How often do you have a drink containing alc ohol? Never 06/11/2022 Average Number of Drinks Not on file 022 Frequency of Binge Drinking Not on file 08/2021 Overall Financial Resource Strain (CARDIA) Answe r Date Recorded How hard is it for you to pa y for the very basics like food, housing, medical care, and heating? Not hard at all 07/07/2023 [facility] - Occupational Stress Questionnaire Answer Date Recorded Do you feel stress - tense, restless, nervous, or anxious, or unable to sleep at night because your mind is troubled all the time - these days? Only a little 08/17/2021 Exercise Vital Sign Answer Date Recorde d On average, how many days pe r week do you engage in moderate to strenuous exercise (like a brisk walk)? 0 days 07/07/2023 On average, how many minutes do you engage in exercise at this level? 0 min 07/07/2023 Hunger Vital Sign Answer Date Recorded Within the past 12 months, y ou worried that your food would run out before you got the money to buy more. Never true 07/07/20 Within the past 12 months, t he food you bought just didn't last and you didn't have money to get more. Never true 07/07/2023 PRAPARE - Transportation Answer Date Re corded In the past 12 months, has l ack of transportation kept you from medical appointments or from getting medications? No 06/12 In the past 12 months, has l ack of transportation kept you from meetings, work, or from getting things needed for daily living? No 07/07/2023 Nutrition Answer Date Recorded On average, how many serving s of fruits and vegetables do you eat per day (serving size is equal to 1 cup or approximately the size of a tennis ball)? 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 I have a [facility] place to live 07/07/2023 Education Answer Date Recorded What is the highest level of school you have completed or the highest degree you have received? 8th grade 06/11/2022 Comments No Sex and Gender Information Value Date Recorded Sex Assigned at Female 02/25/2018 8:11 PM CDT Legal Sex Female 1:30 PM RECORD FILING CLERK Gender Identity Female 02/25/2018 8:11 PM CDT Sexual Orientation Straight 02/25/2018 8: 11 PM CDT Last Filed Vital Signs Vital Sign Reading Time Taken Comments Blood Pressure 125/86 10/10/2023 10:29 AM RECORD FILING CLERK Pulse 87 10/10/2023 10:29 AM RECORD FILING CLERK Temperature 36.2 C (97.2 F) 10/10/2023 10:29 AM RECORD FILING CLERK Respiratory Rate 18 09/06/2021 10:0 3 AM RECORD FILING CLERK Oxygen Saturation 97% 09/06/2021 10: 03 AM RECORD FILING CLERK Inhaled Oxygen Concentration - - Weight 94.7 kg (208 lb 12.4 oz) 024 10:29 AM RECORD FILING CLERK Height 173.3 cm (5' 8.23) 10/10/2023 1 0:29 AM RECORD FILING CLERK Body Mass Index 31.53 10/10/2023 10:29 AM RECORD FILING CLERK Plan of Treatment Health Maintenance Due Date Last Done Comments CT Colonography 1961 Cologuard 1961 FIT 1961 HIV Screening 1961 Hepatitis C Screening 1961 COVID-19 Vaccine (#1) 1966 Pneumococcal vaccine (0-64 years) (2 of 2 - PPSV23 or PCV20) 05/02/2017 03/07/2017 Depression Screening (Annual PHQ-2) 08/11/2023 Mammogram 10/25/2023 10/24/2022, 10/09, 12/18/2020, Additional history exists Influenza Vaccine (#1) 2024 , 05/27/2022, 08/20/2021, Additional history exists DTaP,Tdap,and Td Vaccines (5 - Td or Tdap) 03/07/2025 03/07/2015, 02/13/2006, 01/29/2006, Additional history exists Fasting Glucose for Diabetes Screening 08/06/2026 08/06/2023, 10/17/2022, 09/20/2022, Additional history exists Colonoscopy 10/15/2027 10/14/2017 Colorectal Cancer Screening 10/15/2027 Lipid (Cholesterol) Screening 12/26/2027 12/25/2022, 04/18/2021, 09/04/2020, Additional history exists Zoster Vaccines Completed 03/24/2019, 12/09/2018 HPV Vaccines Aged Out No longer eligi ble based on patient's age to complete this topic IPV Vaccines Aged Out No longer eligi ble based on patient's age to complete this topic Medical Devices Implanted Type Area Neon Sign Mechanic Device Identifier Shelf Expiration Date Model / Serial / Lot Conversions - Default Historical Implant Device Implanted:09/2014 (Quantity not on file) GI Other Umbilical Description:Body Location - Umbilicus. mesh. Device Status Text - GI Other. Hardware E.G. Pins/Screws/Ro ds Hardware e.g. pins/screws /rods N/A: Back Description:Spine fusion Hardware E.G. Pins/Screws/Ro ds Hardware e.g. pins/screws /rods N/A: Back Description:Spine fusion Conversions - Default Historical Implant Device Implanted:09/2014 (Quantity not on file) Hardware e.g. pins/screws /rods Spine Lumbar Description:Body Location - Lumbar. Device Status Text - Hardware. Hardware E.G. Pins/Screws/Ro ds-06/13/2021 Implanted:10/2020 (Quantity not on file) Hardware e.g. pins/screws /rods Spine Lumbar Procedures Procedure Name Priority Date/Time Associated Diagnosis Comments COMPREHENSIVE METABOLIC PANEL, S/P Routine 10/17/2022 1:10 PM RECORD FILING CLERK Arthritis Rheumatoid (HCC) Arteritis Giant Cell (HCC) BI BREAST SCREENING BILATERAL Routine 01/01/2008 9:25 AM CDT from Last 3 Months or Most Recently Relevant to Health Maintenance Results * (ABNORMAL) Comprehensive Metabolic Panel (10/17/2022 1:10 PM RECORD FILING CLERK) Potassium, S 4.7 3.6 - 5.2 mmol/L 10/17/2022 2:34 PM RECORD FILING CLERK DTL Sodium, S 143 135 - 145 mmol/L 10/17/2022 2:34 PM RECORD FILING CLERK DTL Chloride, S 107 98 - 107 mmol/L 10/17/2022 2:34 PM RECORD FILING CLERK DTL Bicarbonate, S 26 22 - 29 mmol/L 10/17/2022 2:34 PM RECORD FILING CLERK DTL Anion Gap 10 7 - 15 10/17/2022 2:34 PM RECORD FILING CLERK DTL BUN (Blood Urea Nitrogen), S 12 6 - 21 mg/dL 10/17/2022 2:34 PM RECORD FILING CLERK DTL Creatinine 0.75 0.59 - 1.04 mg/dL 10/17/2022 2:34 PM RECORD FILING CLERK DTL Estimated GFR (eGFR) >90 >=60 mL/min/BS A 10/17/2022 2:34 PM RECORD FILING CLERK DTL Comment: Estimated GFR calculated using the 2020 CKD_EPI creatinine equation. Calcium, Total, S 8.8 8.8 - 10.2 mg/dL 10/17/2022 2:34 PM RECORD FILING CLERK DTL Glucose, S 226(H) 70 - 140 mg/dL 10/17/2022 2:34 PM RECORD FILING CLERK DTL Protein, Total, S 6.1(L) 6.3 - 7.9 g/dL 10/17/2022 2:34 PM RECORD FILING CLERK DTL Albumin, S 3.8 3.5 - 5.0 g/dL 10/17/2022 2:34 PM RECORD FILING CLERK DTL Aspartate Aminotransferase (AST), S 19 8 - 43 U/L 10/17/2022 2:34 PM RECORD FILING CLERK DTL Alkaline Phosphatase, S 65 35 - 104 U/L 10/17/2022 2:34 PM RECORD FILING CLERK DTL Alanine Aminotransferase (ALT), S 26 7 - 45 U/L 10/17/2022 2:34 PM RECORD FILING CLERK DTL Bilirubin, Total, S 0.3 <=1.2 mg/dL 10/17/2022 2:34 PM RECORD FILING CLERK DTL Blood (Blood, Venous) 10/17/2022 1:10 PM RECORD FILING CLERK 10/17/2022 1:52 PM RECORD FILING CLERK us Jamie López APRN, C.N.P. LAB BLOOD ADD-ON Fin al Result [facility] [address] [place] [address], [facility] DTL [facility] [address] [place] [address] * BI Breast Screening Bilateral (01/01/2008 9:25 AM CDT) Anatomical Region Laterality Modality Breast Bilateral Mammography 01/01/2008 9:25 AM CDT Impressions 01/06/2008 9:16 AM CDT ACR BIRADS Category No. 2, benign findings. A letter has been sent to the patient. This study was evaluated with the assistance of CAD (R2 v5.3). Chris Alanis MD Electronically signed by: Deja Brennan MD 06-Jan-2008 09:16 Narrative 01/06/2008 9:16 AM CDT 01-Jan-2008 09:25:00 Exam: Mammo Screen Bilat Indications: ORIGINAL REPORT - 06-Jan-2008 09:16:00 This [facility] ([facility]) exam was historically loaded. BILATERAL SCREENING MAMMOGRAM: Breast symptoms: None. Previous mammography: 11/15 and 08/13. Breast parenchyma: Fatty/mild densities. Comment: Minor postoperative mammoplasty changes noted in both breasts, all findings stable in the past year. IMAGING Procedure Note ProviderBetsy M.D. - 11/10/2017 01-Jan-2008 09:25:00 Exam: Mammo Screen Bilat Indications: ORIGINAL REPORT - 06-Jan-2008 09:16:00 This [facility] ([facility]) exam was historically loaded. BILATERAL SCREENING MAMMOGRAM: Breast symptoms: None. Previousmammography: 11/15 and 08/13. Breast parenchyma: Fatty/mild densities.Comment: Minor postoperative mammoplasty changes noted in both breasts,all findings stable in the past year. IMAGING IMPRESSION: ACR BIRADS Category No. 2, benign findings. A letter has been sent to thepatient. This study was evaluated with the assistance of CAD (R2 v5.3).Chris Alanis MD Electronically signed by: Deja Brennan MD 06-Jan-2008 09:16 Chelsey Wilson M.D. IMG BI PROCEDURES Final Result from Last 3 Months or Most Recently Relevant to Health Maintenance Additional Health Concerns Infection Onset Date Last Indicated Protective Environment 12/06/2022 3 Insurance MEDICARE [facility] Care Teams Pad Tufter Relationship Specialty Start Date End Date Elsewhere, Pcp PCP - General Family Medicine 09/19/20
--- OUTSIDE RECORDS SUMMARY | 2024-07-05 12:23 | XMS_ITS | Clinical Summary ---
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 Given IV benadryl and ativan. Recurrence of symptoms 24 hours later, but worse. Resolved - now pre-medicating and doing well with infusions. Tocilizumab Other - Describe In Comment Field 07/02/2022 All over body pain / muscle spasm Diphenhydramine-Pseudoe phed Other - Describe In Comment Field 12/01/2018 Tingling in lips. Benzyl Alcohol Other - Describe In Comment Field 12/09/2018 Lip numbness, tingling in throat, lump in throat Blue Dye Other - Describe In Comment Field 06/12/2021 CI Pigment Blue 63 Tremors/shaking/elev ated BP and heart rate (sinus tachycardia) CI Pigment Blue 63 -Associated with Cymbalta - tremors / shaking / elevated BP and heart rate with sinus tachycardia Bupropion Throat Swelling/Closing High 06/22/2010 Ended up in the ER with numbness in lips, swelling in throat and pain in chest after taking 1 wellbutrin this am. Was given Benadryl and Epinephrine as is to follow up in 3 days. Duloxetine Other - Describe In Comment Field 12/20/2014 Tremors/shaking/elev ated BP and heart rate (sinus tachycardia) CI Pigment Blue 63 Meperidine Itching 05/28/2007 Diphenhydramine Anaphylaxis High 10/12/2019 Per patient tolerates IV Benadryl. The allergy is with oral benadryl. Bisacodyl Other - Describe In Comment Field High 12/07/2018 Lip and tongue burning and felt like a lump in throat -seen at the ER Etanercept 07/25/2010 Lump in throat and cough and high BP, nausea Cyclobenzaprine Nausea And Vomiting 05/31/2016 Gabapentin Rash,Nausea Only High 06/12/2021 Was instructed by primary not to take this medication Adalimumab Shortness Of Breath,Throat Swelling/Closing High 09/16/2013 Hydromorphone Nausea And Vomiting 03/13/2010 Can take Dilaudid with Zofran premedication Iodinated Contrast Media Anaphylaxis,Shortne ss Of Breath,Chest Pain,Laryngospasm High 12/26/2020 Pt was given OMNI 350. Due to the extent of the allergic reaction pt is unable to have contrast in the future. Morphine Itching,Nausea And Vomiting 05/28/2007 Oxycodone Nausea And Vomiting 03/13/2010 Pregabalin 12/25/2010 Throat tightening. Red Dye Other - Describe In Comment Field 06/11/2021 Lump in throat and blood pressure goes up Rituximab Other - Describe In Comment Field 10/12/2019 Tromethamine Other - Describe In Comment Field 10/12/2019 Diazepam Rash 05/28/2007 Varicella Vaccines Other - Describe In Comment Field 10/12/2019 Varicella-Zoster Ge-As01b (Pf) Anaphylaxis High 04/19/2019 Reaction to 2nd shot. Throat closing. Medications Medication Sig Dispensed Refills Start Date End Date Status latanoprost (XALATAN) 0.005 % ophthalmic solution Place 1 Drop into both eyes at bedtime. 0 11/16/2008 Active Shower ChairIndications:Fal l at home, subsequent encounter,Right ankle tendonitis,Rheumatoi d arthritis with negative rheumatoid factor, involving unspecified site (HC),PATRICK (dyspnea on exertion) For home use. 1 Device 04/07/2017 Active erythromycin ophthalmic ointment 0.5% Apply 1 Strip to both eyes at bedtime if needed. 3 11/23/2018 Active NebulizerIndications :Atypical pneumonia,Chronic obstructive pulmonary disease with acute exacerbation (HC) Nebulizer, disposable neb kit x 4, reuseable neb kit x 1, mask x 1, filters x 1. Frequency of use: daily; Medication: Albuterol 0.083% Length of need: 99 months 1 Device 08/17/2019 Active CaneIndications:Acut e right lumbar radiculopathy,Disord er of right sacroiliac joint OT EQUIPMENT CANE TYPE:22211} for home use. For 99 weeks. Please send order to [facility] 1 Device 10/22/2019 Active multivitamin (DAILY MULTI-VITAMIN) tablet Take 1 tablet by mouth once daily. 0 11/15/2019 Active ascorbic acid, vitamin C, (VITAMIN C) 1,000 mg tablet Take 1 tablet by mouth once daily. 0 11/15/2019 Active durable medical equipment (DME)Indications:Rhe umatoid arthritis with negative rheumatoid factor, involving unspecified site (HC) Lift chair for daily use. 1 Each 09/06/2020 Active folic acid 1 mg tabletIndications:Rh eumatoid arthritis with negative rheumatoid factor, involving unspecified site (HC) TAKE ONE TABLET DAILY 90 Tablet 2 05/20/2021 Active acetaminophen (TYLENOL EXTRA STRGTH) 500 mg tabletIndications:S/ P lumbar fusion Take 2 Tablets (1,000 mg) by mouth every 6 hours. Max acetaminophen dose: 4000mg in 24 hrs. 40 Tablet 06/14/2021 Active WalkerIndications:S/ P lumbar fusion Walker with front wheels for home use for 3 months 1 Each 06/14/2021 Active methotrexate (FOLEX; MEXATE) 25 mg/mL injectionIndications :Rheumatoid arthritis with negative rheumatoid factor, involving unspecified site (HC) Inject 25 mg subcutaneous once weekly. Mondays t resume 2 weeks after surgery 06/15/2021 Active peg 400-propylene glycol 0.4-0.3 % drpg Place 1 Drop into both eyes once daily if needed. 02/22/2021 Active Syringe with Needle, Disp, 1 mL 28 gauge x 1/2 syrgIndications:Rheu matoid arthritis, involving unspecified site, unspecified whether rheumatoid factor present (HC) As directed. 52 Each 08/31/2021 Active blood-glucose meterIndications:Typ e 2 diabetes mellitus without complication, without long-term current use of insulin (HC) Apply on dry, clean, hairless skin. Dispense meter, test strips, lancets covered by pt ins. E11.65 NIDDM type II, uncontrolled - Test 4 times/day. Reason: Unstable diabetes - on prednisone for other concern. 1 Each 01/16/2022 Active OXcarbazepine (TRILEPTAL) 300 mg tablet Take 300 mg by mouth two times daily. 04/07/2022 Active lancetsIndications:C ontrolled type 2 diabetes mellitus without complication, without long-term current use of insulin (HC) As directed. 05/21/2022 This Rx replaces all other Rxs for this medication 400 Each 3 05/21/2022 Active EPINEPHrine (EpiPen) 0.3 mg/0.3 mL auto-injectorIndicat ions:Adverse food reaction, subsequent encounter Inject 0.3 mg (1 pen) intramuscular one time if needed for Allergic Reaction. 1 Each 1 05/27/2022 Active syringe with needle 1 mL 27 x 1/2 syrgIndications:Rheu matoid arthritis with negative rheumatoid factor, involving unspecified site (HC) As directed. 100 Each 2 11/26/2022 Active Incontinence Pad, Liner, Disp padsIndications:Urin negrita incontinence, unspecified type Use 8-12x/day as needed. Please send order to [facility] Use 8-12x/day as needed. 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 Dose increase 90 Tablet 3 06/09/2023 Active ondansetron (Zofran ODT) 4 mg disintegrating tabletIndications:Ab dominal pain, generalized,Dehydrat ion,Nausea Place 1 Tablet (4 mg) on the tongue every 8 hours if needed for Nausea/Vomiting. 20 Tablet 08/06/2023 Active predniSONE (DELTASONE) 5 mg tabletIndications:Rh eumatoid arthritis with negative rheumatoid factor, involving unspecified site (HC) Take 1.5 Tablets (7.5 mg) by mouth once daily. 135 Tablet 3 08/06/2023 Active WalkerIndications:Sp inal stenosis of lumbar region, unspecified whether neurogenic claudication present Walker with front wheels for home use for 3 months. 1 Each 08/20/2023 Active sennosides-docusate (SENOKOT S) (8.6-50 mg) tabletIndications:Co nstipation due to opioid therapy Take 1-4 Tablets by mouth two times daily. 30 Tablet 08/21/2023 Active HYDROmorphone (DILAUDID) 2 mg tabletIndications:S/ P lumbar fusion,Acute post-operative pain Take 1-2 Tablets (2-4 mg) by mouth every 4 hours if needed for Pain. 35 Tablet 08/21/2023 Active fluconazole (DIFLUCAN) 150 mg tabletIndications:Ye ast vaginitis Take 1 tablet daily as needed for recurrent yeast infection symptoms. 15 Tablet 09/01/2023 Active clotrimazole (LOTRIMIN) 1 % creamIndications:Tin ea Apply topically to affected area(s) two times daily. 45 g 09/22/2023 Active metFORMIN (GLUCOPHAGE XR) 500 mg Extended-Release tabletIndications:Ty pe 2 diabetes mellitus without complication, without long-term current use of insulin (HC) Take 2 Tablets (1,000 mg) by mouth once daily. 180 Tablet 1 09/22/2023 Active pantoprazole (PROTONIX) 40 mg delayed-release tabletIndications:Ga stroesophageal reflux disease, unspecified whether esophagitis present TAKE 1 TABLET BY MOUTH TWICE DAILY BEFORE MEALS 180 Tablet 3 09/23/2023 Active blood sugar diagnostic (OneTouch Ultra Test) stripIndications:Con trolled type 2 diabetes mellitus without complication, without long-term current use of insulin (HC) USE TO TEST THREE TIMES DAILY 300 Each 3 09/30/2023 Active ALPRAZolam (XANAX) 0.25 mg tabletIndications:An xiety TAKE 1 TO 2 TABLETS BY MOUTH TWICE DAILY NEEDED FOR ANXIETY 60 Tablet 04/20/2024 Active baclofen 10 mg tabletIndications:Mu scle spasm TAKE 1 TABLET(10 MG) BY MOUTH TWICE DAILY 180 Tablet 1 05/03/2024 Active Hospital, Clinic, or Other Facility Administered Medication Ordered Dose Route Frequency Start Date End Date Status ketorolac 60 mg injection (TORADOL)Indications:Neck pain 60 mg IM ONE TIME 06/07/2024 06/07/2024 Ended Active Problems Problem Noted Date Diagnosed Date Chronic obstructive pulmonar y disease with acute exacerbation 04/18/2021 Controlled type 2 diabetes m ellitus without complication, without long-term current use of insulin 04/18/2021 Open wound of right thigh 09/08/2015 Overview (09/08/2015): S/p I&D for abscess on 06/05/2015, now with slowly healing wound. Slow healing likely due to steroid use she requires for joint pain. Major depression in full remission 12/12/2014 Overview (06/30/2016): With somatization (from EMR, 12/12/14) PHQ 9 score = 0, 7.4.16 Abdominal pain, acute, right lower quadrant 07/12 Diarrhea 10/06/2013 Overview (10/06/2013): Colonoscopy 09/2013 normal repeat in 10 years Mixed hearing loss, unilateral 01/08/2012 Overview (01/08/2012): left ear Chest pain 11/04/2011 Former smoker 11/04/2011 Family history of ischemic heart disease 012 Overview (11/04/2011): -Father had MT in his 50s Fibromyalgia 11/04/2011 GERD (gastroesophageal reflux disease) 2 Abdominal pain, epigastric 10/24/2011 Overview (11/01/2013): EGD 10/2011 Reactive gastropathy EGD 10/2013 Reactive gastropathy Remote history of Alcohol Dependence; assisted r emission 07/27/2010 Chronic pain 07/27/2010 Spinous process fracture 01/31/2010 Dysthymic disorder 12/05/2009 Shoulder tendinopathy 02/08/2009 RUQ abdominal pain 11/21/2008 Labyrinthitis, unspecified 05/28/2007 Rheumatoid arthritis PONV (postoperative nausea and vomiting) Resolved Problems Problem Noted Date Diagnosed Date Resolved Date Spinous process fracture 01/31/2010 C. difficile enteritis 11/25/200810/06 Encounters Date Type Department Care Team Description 07/05/2024 9:50 AM QUALITY ASSURANCE DIRECTOR Office Visit [facility] [address] [place] [address] Dayan Khan PA Abdominal Pain 07/05/2024 Travel 07/04/2024 Refill [facility] [address] [facility] [place] [address] Amarilys Duckworth PA Refill Request (Alprazolam, Estradiol, Rosuvastatin) 06/25/2024 11:45 AM QUALITY ASSURANCE DIRECTOR Ancillary Procedure [address] [place] [address] 06/25/2024 11:05 AM QUALITY ASSURANCE DIRECTOR Office Visit [address] [place] [address] Dayan Khan PA Knee Pain/problem (Right knee pain, fell over a walking plow, 06/24/2024) 06/24/2024 9:15 AM QUALITY ASSURANCE DIRECTOR Orders Only [address] [place] [address] Lab, [facility] 06/24/2024 Orders Only [facility] Scanner 1 scan: (1-Ord) [facility], 06/24/2024 06/24/2024 Travel 06/07/2024 9:30 AM CDT Office Visit [address] [place] [address] Amarilys Duckworth PA Musculoskeletal Problem (New Neck pain location and feet pain continues. ) 06/07/2024 Travel 05/02/2024 Refill [facility] [address] [facility] [place] [address] Amarilys Duckworth PA Refill Request (Baclofen) 04/20/[address] [address] Amarilys Duckworth PA Refill Request (Alprazolam) 04/16/2024 10:30 AM CDT Office Visit [facility] [address] [place] [address] Bernie Greco, [employer] Hearing [employer] ([facility] #2) 04/16/2024 Travel from Last 3 Months Immunizations Name Administration Dates Next Due AMB Influenza, IIV4 PF (=>6 mos Flulaval,Fluzone Fluarix)(Flu Clinic Only) 06/11/2016 INFLUENZA, IIV3 PF (AGE >= 6 MO) 06/07/2024 Influenza Virus, Unspecified 07/23/2000 Influenza, IIV3 (Age 6-35 mos) 07/28/2009 Influenza, IIV3 (Age >=3 years) 06/15/20 13,08/21/2012,07/28/2009,1999 Influenza, IIV4 06/09/2023, 2,08/20/2021,2019,05/18/2019,05/26/2018,06/20/2017,1 08/11/2015,08/16/2015,06/15/2014 Pneumococcal conj 13-Valent (Prevnar 13) 03/07/2017 Td (Age >=7 Years) 02/13/2006,09/10/1995 Tdap 03/07/2015,08/12/2005 Tuberculin (PPD) 06/25/2011 Zoster (Shingrix-RZV, recombinant) 03/24/2019, Family History Medical History Relation Name Comments Heart Disease Brother 2 Cancer Father Lung Heart Disease Father MT's Alcohol/Drug Maternal Grandmother Atrial fibrillation Mother pacemake r Cancer Mother Lung Diabetes Mother Heart Disease Mother afib Cancer-breast Paternal Aunt x 2 Cancer-ovarian No Family History Relation Name Status Comments Brother 1 Alive Brother 2 Father lung cancer Maternal Grandmother Mother lung cancer Paternal Aunt Sister 1 Alive Sister 2 Alive Sister 3 Alive Sister 4 Alive Sister 5 Alive Social History Tobacco Use Types Packs/Day Years Used Date Smoking Tobacco: Former Cigarettes 0.8 20 0 08/11/1980 - 08/11/2000 Smokeless Tobacco: Never Tobacco Cessation:Counseling Given: No Comments:quit in 2000, smoked 1ppd for 20 yrs Alcohol Use Standard Drinks/Week Comments Not Currently 0 (1 standard drink = 0.6 oz pure alcohol) 1989 - quit drinking, previously heavy drinker PHQ-2 Answer Date Recorded PHQ-2 TOTAL SCORE 2 09/03/2021 Social Connections Answer Date Recorded Do you often feel lonely or isolated from those around you? 0 06/07/2024 Financial Resource Strain Answer Date R ecorded Difficulty of Paying Living Expenses 3 06/07/2024 Difficulty of Paying Living Expenses Not on file 06/07/2024 Food Insecurity Answer Date Recorded Do you worry your food will run out before you are able to buy more? 1 06/07/2024 Transportation Needs Answer Date Record ed Does lack of transportation keep you from medica l appointments? 1 06/07/2024 Does lack of transportation keep you from work, meetings or getting things that you need? 1 06/07/2024 Housing Stability Answer Date Recorded What is your housing situation today? 1 06/07/2024 Sex and Gender Information Value Date Recorded Sex Assigned at Not on file Gender Identity Not on file Sexual Orientation Not on file Obstetrics History Para Term AB IAB SAB Ectopic Multiple Livin g Live Births 2 2 Date Outcome GA Total Labor Labor/2nd/3rd Weight Sex Type Anes PTL [place] A1 A5 Name Clin Para Para Last Filed Vital Signs Vital Sign Reading Time Taken Comments Blood Pressure 131/85 07/05/2024 9:55 AM QUALITY ASSURANCE DIRECTOR Pulse 106 07/05/2024 9:55 AM QUALITY ASSURANCE DIRECTOR Temperature 36.6 C (97.9 F) 07/05/2024 9:55 AM QUALITY ASSURANCE DIRECTOR Respiratory Rate 18 08/21/2023 8:36 AM QUALITY ASSURANCE DIRECTOR Oxygen Saturation 98% 07/05/2024 9:55 AM QUALITY ASSURANCE DIRECTOR Inhaled Oxygen Concentration - - Weight 89.2 kg (196 lb 11.2 oz) 07/05/2024 9:55 AM QUALITY ASSURANCE DIRECTOR Height 172.7 cm (5' 8) 08/19/2023 6:33 AM QUALITY ASSURANCE DIRECTOR Body Mass Index 29.91 08/19/2023 6:33 AM QUALITY ASSURANCE DIRECTOR Plan of Treatment Health Maintenance Due Date Last Done Comments COVID-19 vaccine series (#1) 1966 HIV for age 15-65 1976 Pneumococcal series for age 6-64 (2 of 2 - PPSV23 or PCV20) 05/02/2017 03/07/2017 Depression screening for age 12+ 05/08/2021 05/08/2020, 05/08/2020, 12/22/2018, Additional history exists Mammogram for age 45-75 10/25/2023 10/25/19 23, 12/18/2020, 08/25/2019, Additional history exists BMI (ht and wt on same day) for age 18+ 01/23/2024 01/22/2023, 07/02/2022, 05/27/2022, Additional history exists Tetanus booster 03/07/2025 03/07/2015, 01/11 (Postponed), 02/13/2006, Additional history exists Colonoscopy through age 75 10/15/202710/14, 10/14/2017, 10/05/2013 (Completed outside of [facility]), Additional history exists Lipids for age 45-75 12/26/2027 12/25/2022, 04/18/2021, 09/04/2020, Additional history exists Tdap Completed 03/07/2015, 08/12/2005 Hepatitis C screening for ag e 18-79 Completed 05/24/2015 Zoster (shingles) series for age 50+ Completed 03/24/2019, 12/09/2018 Influenza for age 50-64 Completed 06/07/20 24, 06/09/2023, 05/27/2022, Additional history exists Goals Goal Patient Goal Type Associated Problems Recent Progress Patient-Stated? Author [place] [facility]: Health Maintenance General No Sona Jiménez RN Note: Date goal created: 05/12/17 Barriers to goal achievement: none Notes on progress toward goals: ongoing Member steps toward goal achievement: , Luis Felipe as ordered CC steps toward goal achievement: Preventative oversight of health care, yearly face to face visit, quarterly contact Sona Jiménez RN .................... 05/12/2017 12:19 PM [place] [facility]: Pain will be managed General Yes Sona Jiménez RN Note: Date goal created: 05/12/17 Barriers to goal achievement: Chronic Pain Notes on progress toward goals: ongoing Member steps toward goal achievement: Luis Felipe CORTES as ordered CC steps toward goal achievement: Quarterly contact Sona Jiménez RN .................... 05/12/2017 12:20 PM Medical Devices Implanted Type Area Bunker Worker Device Identifier Shelf Expiration Date Model / Serial / Lot [id number] one 1-4mm 30cc Medtronic Chips Canclls Freeze Dried Implanted:Qty: 1 on 06/12/2021 by Nichelle Morton MD at [facility] Explanted:at [facility] (Quantity not on file) N/A: Spine Medtronic Spine/Ortho 08/15/2025 [id number] / [id number] / Pia Lmbr 40x5.5mm Vitality Cvd Titnm - [id number] Implanted:Qty: 2 on 06/12/2021 by Nichelle Morton MD at [facility] N/A: Spine Tayler [employer]omet Spine [id number] 5 / / Set Screw Lmbr 5.5-6mm Vitality Torque - [id number] Implanted:Qty: 4 on 06/12/2021 by Nichelle Morton MD at [facility] N/A: Spine [employer] Spine [id number] 1 / / Vital Polyaxial Screw [id number] Implanted:Qty: 3 on 06/12/2021 by Nichelle Morton MD at [facility] N/A: Spine [id number] / / Description:VITAL POLYAXIAL SCREW [id number] Vital Polyaxial Screw [id number] Implanted:Qty: 1 on 06/12/2021 by Nichelle Morton MD at [facility] N/A: Spine [id number] / / Description:VITAL POLYAXIAL SCREW [id number] Screw Spinal 5.5x45mm Poly Tl Implanted:Qty: 2 on 08/19/2023 by Nichelle Morton MD at [facility] N/A: Spine [id number] / / Description:SCREW SPINAL 5.5 X45MM POLY TL Screw Spinal 6.5x45mm Poly Tl - [id number] Implanted:Qty: 1 on 08/19/2023 by Nichelle Morton MD at [facility] N/A: Spine [employer] Spine [id number] / / Screw Spinal 7.5x45mm Poly Tl Implanted:Qty: 1 on 08/19/2023 by Nichelle Morton MD at [facility] N/A: Spine [id number] / / Description:SCREW SPINAL 7.5 X45MM POLY TL Pia Lmbr 40x5.5mm Vitality Cvd [facility] - [id number] Implanted:Qty: 2 on 08/19/2023 by Nichelle Morton MD at [facility] N/A: Spine [employer] Spine [id number] 5 / / [place] Ptc 18mmx6 [id number] 45mm Implanted:Qty: 1 on 08/19/2023 by Nichelle Morton MD at [facility] N/A: Spine 07/15/2030 [id number] / / [id number] Description:[place] PTC 1 8MMX6 [id number] X 45MM Bone 1-4mm 60cc Medtronic Fine Canclls Freeze Dried - [id number] Implanted:Qty: 1 on 08/19/2023 by Nichelle Morton MD at [facility] N/A: Spine Medtronic Spine/Ortho 11/10/2026 [id number] / [id number] / Bone Matrix 6cc David Dbf Putty [facility] - [id number] Implanted:Qty: 1 on 08/19/2023 by Nichelle Morton MD at [facility] N/A: Spine Medtronic Spine/Ortho 05/08/2025 [id number] / [id number] / Explanted Type Area Bunker Worker Device Identifier Shelf Expiration Date Model / Serial / Lot Explant Explanted:Qty: 1 on 08/19/2023 at [facility] N/A: Spine Description:SCREW X4 PIA X2 CAP X4 Procedures Procedure Name Priority Date/Time Associated Diagnosis Comments XR KNEE 3 VIEWS RIGHT TIMOTEO 06/25/2024 11:24 AM QUALITY ASSURANCE DIRECTOR Knee injury, right, initial encounter CBC WITH AUTO DIFFERENTIAL Routine 06/24/2024 9:10 AM QUALITY ASSURANCE DIRECTOR Atrophic arthritis (HC) AST (SGOT) Routine 06/24/2024 9:10 AM QUALITY ASSURANCE DIRECTOR Atrophic arthritis (HC) ALT (SGPT) Routine 06/24/2024 9:10 AM QUALITY ASSURANCE DIRECTOR Atrophic arthritis (HC) CREATININE Routine 06/24/2024 9:10 AM QUALITY ASSURANCE DIRECTOR Atrophic arthritis (HC) SCAN-EYE EXAM 06/24/2024 12:00 AM QUALITY ASSURANCE DIRECTOR URINE ALBUMIN TO CREATININE RATIO, RANDOM Routine 06/07/2024 1:10 PM CDT Controlled type 2 diabetes mellitus without complication, without long-term current use of insulin (HC) HEMOGLOBIN A1C MONITORING (POCT) Routine 06/07/2024 10:41 AM CDT Controlled type 2 diabetes mellitus without complication, without long-term current use of insulin (HC) HEMOGLOBIN Routine 06/07/2024 10:37 AM CDT Paresthesias Peripheral sensory neuropathy TSH Routine 06/07/2024 10:37 AM CDT Paresthesias Peripheral sensory neuropathy VITAMIN B12 Routine 06/07/2024 10:37 AM CDT Paresthesias Peripheral sensory neuropathy LIPID PANEL W REFLEX MEASURED LDL Routine 12/25/2022 10:26 AM CDT Screening cholesterol level XR MAMMO JANKI BILAT SCREEN Routine 10/24/2022 10:29 AM CDT Visit for screening mammogram COLONOSCOPY 10/14/2017 11:12 AM QUALITY ASSURANCE DIRECTOR ACUTE HEPATITIS PANEL Routine 05/24/2015 3:22 PM CDT Need for hepatitis B screening test Need for hepatitis C screening test from Last 3 Months or Most Recently Relevant to Health Maintenance Results * XR KNEE 3 VIEWS RIGHT (06/25/2024 11:24 AM QUALITY ASSURANCE DIRECTOR) Anatomical Region Laterality Modality KNEES, KNEE R Computed Radiogr aphy 06/25/2024 1:04 PM QUALITY ASSURANCE DIRECTOR Impressions 06/25/2024 1:04 PM QUALITY ASSURANCE DIRECTOR No fracture or acute finding in the right knee. Dictated by Radha Najera MD @ 06/25/2024 1:04:21 PM (Electronically Signed) Narrative 06/25/2024 1:04 PM QUALITY ASSURANCE DIRECTOR For Patients: As a result of the Cures Act, medical imaging exams and procedure reports are released immediately into your electronic medical record. You may view this report before your referring provider. If you have questions, please contact your health care provider. INDICATION: Knee injury, right. Fall. COMPARISON: 09/04/2020 TECHNIQUE: Three views right knee. AP and lateral are obtained weight-bearing. FINDINGS: No fracture. Normal alignment. Mild medial compartment narrowing without subchondral remodeling. No focal bone lesions. Normal bone mineralization. Soft tissues are normal. No knee joint effusion. No foreign body. Procedure Note Radha Najera MD - 06/25/2024 For Patients: As a result of the Cures Act, medical imagingexams and procedure reports are released immediately into your electronicmedical record. You may view this report before your referring provider.If you have questions, please contact your health care provider. INDICATION: Knee injury, right. Fall. COMPARISON: 09/04/2020 TECHNIQUE: Three views right knee. AP and lateral are obtained weight-bearing. FINDINGS: No fracture. Normal alignment. Mild medial compartment narrowing without subchondral remodeling. No focal bone lesions. Normal bone mineralization. Soft tissues are normal. No knee joint effusion. No foreign body. IMPRESSION: No fracture or acute finding in the right knee. Dictated by Radha Najera MD @ 06/25/2024 1:04:21 PM (Electronically Signed) Dayan CA GENERAL IMAGIN G * CREATININE (06/24/2024 9:10 AM QUALITY ASSURANCE DIRECTOR) CREATININE 0.76 0.50 - 1.05 mg/dL [facility] EGFR 88 > OR = 60 mL/min/1.73 m2 [facility] Blood BLOOD SPECIMEN / Unknown 06/24/2024 9:10 AM QUALITY ASSURANCE DIRECTOR 06/24/2024 9:11 AM QUALITY ASSURANCE DIRECTOR Amarilys [place] CHEMISTRY [employer] [facility] [address] [place] [address], [facility] [address] [place] [address] * CBC AND DIFFERENTIAL (06/24/2024 9:10 AM QUALITY ASSURANCE DIRECTOR) Pathologist [facility] WHITE BLOOD CELL COUNT 6.7 3.8 - 10.8 Thousand/u L [facility] RED BLOOD CELL COUNT 4.49 3.80 - 5.10 Million/uL [facility] HEMOGLOBIN 14.5 11.7 - 15.5 g/dL [facility] HEMATOCRIT 43.2 35.0 - 45.0 % [facility] MCV 96.2 80.0 - 100.0 fL [facility] MCH 32.3 27.0 - 33.0 pg [facility] MCHC 33.6 32.0 - 36.0 g/dL [facility] Comment: For adults, a slight decrease in the calculated MCHC value (in the range of 30 to 32 g/dL) is most likely not clinically significant; however, it should be interpreted with caution in correlation with other red cell parameters and the patient's clinical condition. RDW 12.7 11.0 - 15.0 % [facility] PLATELET COUNT 241 140 - 400 Thousand/u L [facility] MPV 10.0 7.5 - 12.5 fL [facility] ABSOLUTE NEUTROPHILS 4,636 1,500 - 7,800 cells/uL [facility] ABSOLUTE LYMPHOCYTES 1,353 850 - 3,900 cells/uL [facility] ABSOLUTE MONOCYTES 536 200 - 950 cells/uL [facility] ABSOLUTE EOSINOPHILS 147 15 - 500 cells/uL [facility] ABSOLUTE BASOPHILS 27 0 - 200 cells/uL [facility] NEUTROPHILS 69.2 % [facility] LYMPHOCYTES 20.2 % [facility] MONOCYTES 8.0 % [facility] EOSINOPHILS 2.2 % [facility] BASOPHILS 0.4 % [facility] Blood BLOOD SPECIMEN / Unknown 06/24/2024 9:10 AM QUALITY ASSURANCE DIRECTOR 06/24/2024 9:11 AM QUALITY ASSURANCE DIRECTOR Amarilys [place] HEMATOLOGY [facility] [address] [facility] [address], [place] [phone] [facility] [address] [facility] [place] [address] * ALT (SGPT) (06/24/2024 9:10 AM QUALITY ASSURANCE DIRECTOR) ALT 13 6 - 29 U/L [facility] Blood BLOOD SPECIMEN / Unknown 06/24/2024 9:10 AM QUALITY ASSURANCE DIRECTOR 06/24/2024 9:11 AM QUALITY ASSURANCE DIRECTOR Amarilys [place] CHEMISTRY [facility] [address] [facility] [place] [address], [place] [phone] [facility] [address] [place] [address] * AST (SGOT) (06/24/2024 9:10 AM QUALITY ASSURANCE DIRECTOR) AST 13 10 - 35 U/L [facility] Blood BLOOD SPECIMEN / Unknown 06/24/2024 9:10 AM QUALITY ASSURANCE DIRECTOR 06/24/2024 9:11 AM QUALITY ASSURANCE DIRECTOR Amarilys [place] CHEMISTRY [employer] [facility] [address] [place] [address], [place] [phone] [facility] [address] [place] [address] * SCAN-EYE EXAM (06/24/2024 12:00 AM QUALITY ASSURANCE DIRECTOR) Scanner OTHER * (ABNORMAL) URINE ALBUMIN TO CREATININE RATIO, RANDOM (06/07/2024 1:10 PM CDT) CREATININE, RANDOM URINE 561(H) 20 - 275 mg/dL [facility] Comment: Verified by repeat analysis. ALBUMIN, URINE 2.3 See Note: mg/dL [facility] Comment: Reference Range: Reference Range Not established ALBUMIN/CREATININE RATIO, RANDOM URINE 4 <30 mg/g creat [facility] Comment: The ADA defines abnormalities in albumin excretion as follows: Albuminuria Category Result (mg/g creatinine) Normal to Mildly increased <30 Moderately increased 30-299 Severely increased > OR = 300 The ADA recommends that at least two of three specimens collected within a 3-6 month period be abnormal before considering a patient to be within a diagnostic category. Urine URINE SPECIMEN / Unknown 06/07/2024 1:10 PM CDT 06/07/2024 1:10 PM CDT Narrative [facility] - 06/08/2024 4:02 PM CDT SPLIT 06/07/2024 FROM [id number] Amarilys [place] URINE [employer] [facility] [address] [place] [address], [place] [phone] [facility] [address] [place] [address] * (ABNORMAL) HEMOGLOBIN A1C MONITORING (POCT) (06/07/2024 10:41 AM CDT) POC HEMOGLOBIN A1C 7.5(H) <6.0 % OF TOTAL HGB [facility] Comment: Any point of care results exhibiting inconsistency with the patient's clinical status should be repeated using a different testing method. Blood BLOOD SPECIMEN / Unknown 06/07/2024 10:41 AM CDT 06/07/2024 10:41 AM CDT Amarilys [place] CHEMISTRY Performing Organization Address City/[facility]/ZIP Co de Phone Number [facility] [address] [place] [address], [facility] [address] [place] [address] * TSH (06/07/2024 10:37 AM CDT) TSH 0.91 0.40 - 4.50 mIU/L [facility] Blood BLOOD SPECIMEN / Unknown 06/07/2024 10:37 AM CDT 06/07/2024 10:37 AM CDT Narrative [facility] - 06/08/2024 4:33 AM CDT MULTIPLE TESTING PRIORITIES; ROUTINE TESTING TO FOLLOW. Amarilys [place] CHEMISTRY Performing Organization Address [facility] Co de Phone Number [facility] [address] [place] [address], [facility] [address] [place] [address] * HEMOGLOBIN (06/07/2024 10:37 AM CDT) HEMOGLOBIN 14.2 11.7 - 15.5 g/dL [facility] Blood BLOOD SPECIMEN / Unknown 06/07/2024 10:37 AM CDT 06/07/2024 10:37 AM CDT Narrative [facility] - 06/08/2024 3:20 AM CDT MULTIPLE TESTING PRIORITIES; ROUTINE TESTING TO FOLLOW. Amarilys [place] HEMATOLOGY Performing Organization Address [facility]/ZIP Co de Phone Number [employer] [facility] [address] [place] [address], [facility] [address] [place] [address] * VITAMIN B12 (06/07/2024 10:37 AM CDT) VITAMIN B12 399 200 - 1,100 pg/mL [facility] Comment: Please Note: Although the reference range for vitamin B12 is 200-1100 pg/mL, it has been reported that between 5 and 10% of patients with values between 200 and 400 pg/mL may experience neuropsychiatric and hematologic abnormalities due to occult B12 deficiency; less than 1% of patients with values above 400 pg/mL will have symptoms. Blood BLOOD SPECIMEN / Unknown 06/07/2024 10:37 AM CDT 06/07/2024 10:37 AM CDT Narrative [facility] - 06/08/2024 4:33 AM CDT MULTIPLE TESTING PRIORITIES; ROUTINE TESTING TO FOLLOW. Amarilys [place] CHEMISTRY Performing Organization Address [facility] Co de Phone Number [employer] [facility] [address] [place] [address], [facility] [address] [place] [address] * (ABNORMAL) LIPID PANEL W REFLEX MEASURED LDL (12/25/2022 10:26 AM CDT) CHOLESTEROL,TOTAL 118 100 - 199 mg/dL 12/26/2022 1:02 AM CDT [facility] Comment: Cholesterol, Total Reference Ranges Desirable <200 mg/dL Borderline 200-239 mg/dL High >=240 mg/dL TRIGLYCERIDES 362(H) <150 mg/dL 12/26/2022 1:[address] [facility] HDL CHOLESTEROL 43 >40 mg/dL 1:02 AM CDT [facility] NON-HDL CHOLESTEROL 75 <145 mg/dl 12/26/2022 1:02 AM CDT [facility] CHOL/HDL RATIO 2.74 <4.50 12/26/2022 1:02 AM CDT [facility] LDL CHOLESTEROL 3 <=130 mg/dL 12/26/2022 1:02 AM CDT [facility] PROVIDER ORDERED STATUS RANDOM 12/26/2022 1:02 AM CDT [facility] Blood BLOOD SPECIMEN / Unknown Venipuncture / Unknown 12/25/2022 10:26 AM CDT 12/25/2022 10:27 AM CDT Amarilys [place] CHEMISTRY [facility] [address] [place] [address], [place] * XR MAMMO JANKI BILAT SCREEN (10/24/2022 10:29 AM CDT) Anatomical Region Laterality Modality BREASTS, Breast Left, Breast Right Bilateral Mammography Impressions 10/24/2022 4:07 PM CDT There is no radiographic evidence for malignancy. Recommend annual mammograms. MAMMOGRAM ASSESSMENT: ACR 1 Negative PATIENTS: You will also receive a letter with your examination results in an easy to read format. If you have questions about your results, please contact your referring provider. Narrative 10/24/2022 4:07 PM CDT For Patients: As a result of the Century Cures Act, medical imaging exams and procedure reports are released immediately into your electronic medical record. You may view this report before your referring provider. If you have questions, please contact your health care provider. XR MAMMO JANKI BILAT SCREEN [[id number]] CLINICAL HISTORY: This is an asymptomatic 62 y.o. patient. INDICATION FOR EXAM: Mammogram Screening. TECHNIQUE: CC & MLO views were obtained. This study was evaluated with the assistance of Computer-Aided Detection. Breast Tomosynthesis was used in interpretation. COMPARISON FILM: Yes 12/18/20 [facility] FINDINGS: The breasts have scattered areas of fibroglandular density. There are no dominant masses, suspicious micro calcifications or areas of architectural distortion. Amarilys [place] MAMMO * COLONOSCOPY (10/14/2017 11:12 AM QUALITY ASSURANCE DIRECTOR) 10/14/2017 11:1 2 AM QUALITY ASSURANCE DIRECTOR Narrative Transcriptions Jack Boothe MD - 10/14/2017 12:42 PM CST Patient Name: Guadalupe Eaton Procedure Date: 10/14/2017 Gender: Female Date of : 1960 Admit Type: Outpatient Procedure: Colonoscopy Proceduralist: Jack Boothe MD , Carmela Alvarez (Nurse) Referring MD: Amarilys Duckworth Indications/Pre-Op Diagnosis: Last colonoscopy: September 2013, Abdominalpain in the right lower quadrant, Rectalbleeding Medications: Fentanyl 200 micrograms IV, Midazolam 4 mgIV, The level of sedation administered wasmoderate Procedure Description: The patient had risks, benefits and alternatives explained to andgave informed consent. The patient had a stable cardiopulmonary status and judged an adequate candidate for conscious sedation. The Colon CF-H180AL [id number] was passed through the anus and advancedto the cecum, identified by appendiceal orifice and ileocecal valve. The colonoscopy was performed without difficulty. The patient toleratedthe procedure well. The quality of the bowel preparation was good. The ileocecal valve, appendiceal orifice, and rectum were photographed. Complications: No immediate complications. Estimated Blood Loss & Specimen: Estimated blood loss: none. Specimen collected - Yes and sent to Laboratory Findings: The perianal and digital rectal examinations were normal. The terminal ileum appeared normal. Multiple small and large-mouthed diverticula were found in thesigmoid colon and descending colon. Non-bleeding internal hemorrhoids were found. The hemorrhoids weresmall. The exam was otherwise without abnormality on direct and retroflexion views. Impressions/Post-Op Diagnosis: - The examined portion of the ileum was normal. - Diverticulosis in the sigmoid colon and in the descending colon. - Non-bleeding internal hemorrhoids. - The examination was otherwise normal on direct and retroflexionviews. - No specimens collected. Recommendation: - Patient has a contact number available for emergencies. The signsand symptoms of potential delayed complications were discussed with the patient. Return to normal activities tomorrow. Written discharge instructions were provided to the patient. - Resume previous diet. - Continue present medications. - Repeat colonoscopy in 10 years for screening purposes. Moderate Sedation: Moderate (conscious) sedation was administered by the endoscopy nurse and supervised by the endoscopist. The following parameters were monitored: oxygen saturation, heart rate, respiratory rate, blood pressure, adequacy of pulmonary ventilation and reponse to care. [facility] and nursing notes for moderate sedation details. Total physician intraservice time was 22 minutes. Jack Boothe MD 10/14/2017 12:42:08 PM This report has been signed electronically. Note Initiated On: 10/14/2017 11:12 AM Procedure Code(s): --- Professional --- 51791, Colonoscopy, flexible; diagnostic, including collection of specimen(s) bybrushing or washing, when performed (separateprocedure) Diagnosis Code(s): --- Professional --- K64.8, Other hemorrhoids R10.31, Right lower quadrant pain K62.5, Hemorrhage of anus and rectum K57.30, Diverticulosis of large intestine without perforation or abscess withoutbleeding CPT copyright 2016 [employer]. All rights reserved. The codes documented in this report are preliminary and upon cinder crusher operator reviewmay be revised to meet current compliance requirements. Scope In: 12:17:14 PM Scope Withdrawal Time 0 hours 9 minutes 32 seconds Scope Out: 12:35:07 PM Jack Boothe MD PROCEDURE ORD * ACUTE HEPATITIS PANEL (05/24/2015 3:22 PM CDT) HEPATITIS C ANTIBODY Non-Reactive Non-Reactive 05/24/2015 8:59 PM CDT [facility] IGM ANTI HAV Non-Reactive Non-Reactive 05/24/2015 8:59 PM CDT [facility] HBSAG Nonreactive Nonreactive 05/24/2015 8:59 PM CDT [facility] IGM ANTI HBC Non-Reactive Non-Reactive 05/24/2015 8:59 PM CDT [facility] Blood specimen (specimen) BLOOD SPECIMEN / Unknown Venipuncture / Unknown 05/24/2015 3:22 PM CDT 05/24/2015 3:23 PM CDT Narrative [facility] - 05/24/2015 8:59 PM CDT Anti-HBc IgM not detected. Does not exclude the possibility of exposure to or infection with HBV. Amarilys CA SEND OUTS [facility] [address] [place] [address], from Last 3 Months or Most Recently Relevant to Health Maintenance Advance Directives * Full Code (Latest Code Status on File) Date Activated Date Inactivated Comments 08/19/2023 12:59 PM 08/21/2023 5:06 PM Question Answer Comments Code Status Discussion: Unable to Assess Preferences, Provider to review later * Full Code Date Activated Date Inactivated Comments 06/14/2021 9:40 AM 06/15/2021 4:48 PM Question Answer Comments Code Status Discussion: Reviewed Preferences * Full Code Date Activated Date Inactivated Comments 09/08/2015 9:38 AM 09/09/2015 2:23 AM * Full Code Date Activated Date Inactivated Comments 07/30/2014 8:14 PM 08/01/2014 4:25 PM * Full Code Date Activated Date Inactivated Comments 11/04/2011 7:45 AM 11/04/2011 4:10 PM Care Teams [employer] Co[employer] Machine 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
--- OUTSIDE RECORDS SUMMARY | 2024-07-05 12:23 | XMS_ITS | Continuity of Care Document ---
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 Name Role Phone Nichelle Morton MD Unavailable Unavailable Allergies, Adverse Reactions, Alerts Substance Reaction Status Criticality red dye Unknown Active No Information blue dye Unknown Active No Information tromethamine Unknown Active No Information rituximab Unknown Active No Information tocilizumab Unknown Active No Information gabapentin NauseaRash Active No Information varicella virus vaccine live Unknown Active No Information diazepam rash Active No Information pregabalin Unknown Active No Information oxycodone VomitingNauseaitching Active No Inf ormation morphine VomitingNausea Active No Informatio n hydromorphone VomitingNausea Active No Informati on CYCLOBENZAPRINE HCL VomitingNausea Active No Inf ormation etanercept Unknown Active No Information MEPERIDINE HCL itching Active No Informatio n DULOXETINE HCL Unknown Active No Informatio n benzyl alcohol Unknown Active No Informatio n DIPHENHYDRAMINE HCL Unknown Active No Infor mation abatacept ParesthesiaDizziness throat swelling/closing Active No Information varicella-zoster immune globulin (human) Anaphylaxis Active No Information Iodinated Contrast Media Anaphylaxis Active No Information adalimumab throat swelling/clos ingshortness of breath Active No Information bupropion throat swelling Active No Informati on bisacodyl Unknown Active No Information Medications Medication Instructions Dosage Effective Dates (start - stop) Status Comments BACLOFEN (unknown strength) Not Available - Active PREDNISONE (unknown strength) Not Available - Active ACETAMINOPHEN (unknown strength) Not Available - Active EPINEPHRINE (unknown strength) Not Available - Active ERYTHROMYCIN (unknown strength) Not Available - Active FLUTICASONE PROPIONATE (unknown strength) Not Available - Active HYDROMORPHONE HCL (unknown strength) Not Available - Active HYDROXYZINE PAMOATE (unknown strength) Not Available - Active METFORMIN HCL (unknown strength) Not Available - Active NITROGLYCERIN (unknown strength) Not Available - Active NYSTATIN (unknown strength) Not Available - Active ONDANSETRON ODT (unknown strength) Not Available - Active OXCARBAZEPINE (unknown strength) Not Available - Active XALATAN (unknown strength) Not Available - Active METHOTREXATE (unknown strength) Not Available - Active XANAX (unknown strength) Not Available - Active IBUPROFEN (unknown strength) Not Available - Active ESTRADIOL (ONCE WEEKLY) (unknown strength) Not Available - Active FOLIC ACID (unknown strength) Not Available - Active PROTONIX IV (unknown strength) Not Available - Active VITAMIN C (unknown strength) Not Available - Active MULTIVITAMIN (unknown strength) Not Available - Active CRESTOR (unknown strength) Not Available - Active Procedures Procedure Date Office/Outpatient Visit,Est, Low 2023 Postop Followup Visit Postop Followup Visit ALIF / OLIF Anterior Lumbar Interbody Fu thang PEEK/ Cage/ Implant, For Interbody Fusio n PSF, Lumbar ALIF / OLIF Anterior Lumbar Interbody Fu thang - [place] Lami, Facetectomy/Foraminotomy, Lumbar ( Stenosis) Reinsertion of Instrumentation PEEK/ Cage/ Implant, For Interbody Fusio n Office/Outpatient Visit,Est, Mod 2022 Office/Outpatient Visit,Est, Mod 2022 Office/Outpatient Visit,Est, Mod 2021 Postop Followup Visit X-Ray Exam Lower Spine 2-3 Views 2020 PSF, Lumbar - PA Lami/Discectomy, Lumbar HNP - PA 2020 Posterior Instrumentation, Non-segmental - PA PSF, Lumbar Lami/Discectomy, Lumbar HNP Posterior Instrumentation, Non-segmental Office/Outpatient Visit,Est, Mod 2020 Office/Outpatient Visit,New, Mod 2020 Advance Directives Directive Yes / No Effective Date File Name No Information Encounters Encounter Description Practice Location Reason(s) For Visit Diagnoses Date Provider Providers Copied on Encounter [facility], [address], [place], [place], [id number] , [place] tel: [phone] [facility] No Information 4 Mehbod Amir. [facility], [address] [place] [address] [address], [facility] [place], [place], [id number] , [place]. tel: [phone] Office/Outpa tient Visit,Est, Low [facility], [address], [place], [place], [id number] , [place] tel: [phone] [facility] Arthrodesis status 4 Mehbod Amir. [facility], [address] [place] [address] [address], [facility] [place], [place], [id number] , [place]. tel: [phone] Referring Provider: Amarilys Duckworth [facility] [address] [place], [address]. tel:[phone] [facility], [address], [facility] [place], [place], [id number] , [place] tel: [phone] [facility] Encounter for other specified surgical aftercare 4 Mehbod Amir. [facility], [address] [place] [address], [facility] [place], [id number] , [place]. tel: [phone] Referring Provider: Amarilys Duckworth [facility] [address] [place], [address]. tel:[phone] [facility], [address], [facility] [place], [id number] , [place] tel: [phone] [facility] Encounter for other specified surgical aftercare 4 Mikala De Luna. [facility], [address] [place] [address] 600, [place], [address], [place]. tel: [phone] Referring Provider: Amarilys Duckworth [facility] [address] [facility], [place], [address]. tel:[phone] [facility], [address], [place], [place], [id number] , [place] tel: [phone] [facility] No Information 4 Bach Calixto. [facility], [address] [place] [address] [address], [place], [address], [place]. tel: [phone] Referring Provider: Amarilys Duckworth [facility], [place], [address]. tel:[phone] [facility], [address], [place], [place], [address] , [place] tel: [phone] [facility] No Information 4 Mehbod Amir. [facility], [address] [place] [address], [facility] [place], [id number] , [place]. tel: [phone] Referring Provider: Amarilys Duckworth [facility] [address] [place] [address], [place], [address]. tel:[phone] Office/Outpa tient Visit,Est, Mod [facility], [address], [place], [id number] , [place] tel: [phone] [facility] Low back pain, unspecifiedPseuda rthrosis after fusion or arthrodesis 3 Mehbod Amir. [facility], [address] [place] [address] [address], [place], [place], [id number] , [place]. tel: [phone] Referring Provider: Amarilys Duckworth [facility] [address] [facility], [place], [address]. tel:[phone] Office/Outpa tient Visit,Est, Mod [facility], [address], [place], [place], [address] , [place] tel: [phone] [facility] Arthrodesis statusLow back pain, unspecified 3 Mehbod Amir. [facility], [address] [place] [address], [place], [id number] , [place]. tel: [phone] Referring Provider: Kamini Talley [facility], [place], [address]. tel:[phone] Office/Outpa tient Visit,Est, Mod [facility], [address], [place], [id number] , [place] tel: [phone] [facility] Pseudarthrosis after fusion or arthrodesis 2 Mehbod Amir. [facility], [address] [place] [address], [place], [id number] , [place]. tel: [phone] Referring Provider: [facility]ys Duckworth [facility], [place], [address]. tel:[phone] [facility], [address], [place], [id number] , [place] tel: [phone] [facility] No Information 1 Mehbod Amir. [facility], [address] [place] [address], [place], [id number] , [place]. tel: [phone] Referring Provider: [facility], [place], [address]. tel:[phone] [facility], [address], [place], [id number] , [place] tel: [phone] [facility] No Information 1 Zak Gonzalez. [address] [place] [address] 600, [place], [id number] , [place]. tel: [phone] Referring Provider: [facility], [place], [address]. tel:[phone] [facility], [address], [place], [address] , [place] tel: [phone] [facility] No Information 1 Mehbod Amir. [facility], [address] [place] [address] [address], [place], [place], [id number] , [place]. tel:[phone] Referring Provider: Amarilys Duckworth [facility] [place], [address]. tel:[phone] Office/Outpa tient Visit,Est, Mod [facility], [address], [place], [place], [id number] , [place] tel:[phone] [facility] HNP - Lumbar Region Sep-2 1 Mehbod Amir. [facility], [address] [place] [address] [address], [place], [place], [id number] , [place]. tel:[phone] Referring Provider: Amarilys Duckworth [facility], [place], [address]. tel:[phone] Office/Outpa tient Visit,New, Mod [facility], [address], [place], [place], [id number] , [place] tel: [phone] [facility] Other intervertebral disc displacement, lumbar regionRadiculopat hy, lumbar regionOther intervertebral disc degeneration, lumbar regionLow back pain Mar-0 1 Mehbod Amir. [facility], [address] [place] [address] [address], [place], [place], [id number] , [place]. tel:[phone] Referring Provider: Amarilys Duckworth [facility], [place], [address]. tel:[phone] Family History Family Member Type Diagnosis Age At Onset No Information Payers Payer name Insurance type Covered constitution party ID Authormasona margarita(s) Medicare MB [id number] [facility] 2021 CI [id number] Social History Type Description Quantity Date Captured Comments Sex Female Smoking Status No Information Chief Complaint And Reason For Visit No Information Reason For Referral Reason For Referral No Information History Of Present Illness Encounter Date Complaint History Of Prese nt Illness No Information Functional Status Date Functional Assessmen t No Information Instructions Date Instruction Additional Infor mation No Information Assessments Type Assessment Date No Information Patient Care Teams Name Effective Dates (start - stop) Status Members No Information
--- OUTSIDE RECORDS SUMMARY | 2024-07-05 12:24 | XMS_ITS | Referral Summary ---
Author Organization [facility] Address [address] [place] [address] Care Team Providers Care Paradichlorobenzene Machine Operator Name Role Phone Elsewhere, Pcp Primary Care Provider Unavailabl e Source Comments Patient records contain information from all sites at [facility]. For routine questions regarding patient records, call [phone] during business hours, M-F 8:00 AM - 5:00 PM Central Time. Record requests for emergency care only can be directed to [phone] at any time.[facility] Allergies Active Allergy Reactions Criticality Noted Date [...] times a day. To affected area. 10/22/19 Active estradioL (ESTRACE) 1 mg tablet Take [...] Admin Instructions. 12/05/19 23 Active Research IRB [id number] predniSONE 5 mg capsule Active methotrexate 25 [...] 07/23/2000 Td (Adult), adsorbed 02/13/2006,09/10/1995 Tdap 08/12/2005 Social History Tobacco Use Types Packs/Day Years [...] week 06/11/2022 How often do you attend chur ch or protestant services? 1 to 4 times per year 06/11/2022 Do you belong to any clubs o r organizations such as nondenominational groups, unions, fraternal or athletic groups, or [...] and heating? Not hard at all 07/07/2023 [facility] - Occupational Stress [...] money to buy more. Never true 07/07/20 23 Within the past 12 months, t he [...] your living situation today? I have a [employer] [facility] place to live 07/07/2023 Education Answer Date Recorded What is the highest level of school you have completed or the highest degree you have received? 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 Gender Identity Female 02/25/2018 8:11 PM CDT Sexual Orientation Straight 02/25/2018 8: 11 PM CDT Last Filed Vital Signs Vital Sign Reading Time Taken Comments Blood Pressure 125/86 10/10/2023 10:29 AM POCKETS AND PIECES NECKTIE OPERATOR Pulse 87 10/10/2023 10:29 AM POCKETS AND PIECES NECKTIE OPERATOR Temperature 36.2 C (97.2 F) 10/10/2023 10:29 AM POCKETS AND PIECES NECKTIE OPERATOR Respiratory Rate 18 09/06/2021 10:0 3 AM POCKETS AND PIECES NECKTIE OPERATOR Oxygen Saturation 97% 09/06/2021 10: 03 AM POCKETS AND PIECES NECKTIE OPERATOR Inhaled Oxygen Concentration - - Weight 94.7 kg (208 lb 12.4 oz) 024 10:29 AM POCKETS AND PIECES NECKTIE OPERATOR Height 173.3 cm (5' 8.23) 10/10/2023 1 0:29 AM POCKETS AND PIECES NECKTIE OPERATOR Body Mass Index 31.53 10/10/2023 10:29 AM POCKETS AND PIECES NECKTIE OPERATOR Plan of Treatment Not on file Medical Devices Implanted Type Area Piece Jobber Device Identifier Shelf Expiration Date Model / [...] METABOLIC PANEL, S/P Routine 10/17/2022 1:10 PM POCKETS AND PIECES NECKTIE OPERATOR Arthritis Rheumatoid (HCC) Arteritis Giant Cell (HCC) BI BREAST SCREENING BILATERAL Routine 01/01/2008 9:25 AM CDT from Last 3 Months or Most Recently Relevant to Health Maintenance Results * (ABNORMAL) Comprehensive Metabolic Panel (10/17/2022 1:10 PM POCKETS AND PIECES NECKTIE OPERATOR) Potassium, S 4.7 3.6 - 5.2 mmol/L 10/17/2022 2:34 PM POCKETS AND PIECES NECKTIE OPERATOR DTL Sodium, S 143 135 - 145 mmol/L 10/17/2022 2:34 PM POCKETS AND PIECES NECKTIE OPERATOR DTL Chloride, S 107 98 - 107 mmol/L 10/17/2022 2:34 PM POCKETS AND PIECES NECKTIE OPERATOR DTL Bicarbonate, S 26 22 - 29 mmol/L 10/17/2022 2:34 PM POCKETS AND PIECES NECKTIE OPERATOR DTL Anion Gap 10 7 - 15 10/17/2022 2:34 PM POCKETS AND PIECES NECKTIE OPERATOR DTL BUN (Blood Urea Nitrogen), S 12 6 - 21 mg/dL 10/17/2022 2:34 PM POCKETS AND PIECES NECKTIE OPERATOR DTL Creatinine 0.75 0.59 - 1.04 mg/dL 10/17/2022 2:34 PM POCKETS AND PIECES NECKTIE OPERATOR DTL Estimated GFR (eGFR) >90 >=60 mL/min/BS A 10/17/2022 2:34 PM POCKETS AND PIECES NECKTIE OPERATOR DTL Comment: Estimated GFR calculated using the 2020 CKD_EPI creatinine equation. Calcium, Total, S 8.8 8.8 - 10.2 mg/dL 10/17/2022 2:34 PM POCKETS AND PIECES NECKTIE OPERATOR DTL Glucose, S 226(H) 70 - 140 mg/dL 10/17/2022 2:34 PM POCKETS AND PIECES NECKTIE OPERATOR DTL Protein, Total, S 6.1(L) 6.3 - 7.9 g/dL 10/17/2022 2:34 PM POCKETS AND PIECES NECKTIE OPERATOR DTL Albumin, S 3.8 3.5 - 5.0 g/dL 10/17/2022 2:34 PM POCKETS AND PIECES NECKTIE OPERATOR DTL Aspartate Aminotransferase (AST), S 19 8 - 43 U/L 10/17/2022 2:34 PM POCKETS AND PIECES NECKTIE OPERATOR DTL Alkaline Phosphatase, S 65 35 - 104 U/L 10/17/2022 2:34 PM POCKETS AND PIECES NECKTIE OPERATOR DTL Alanine Aminotransferase (ALT), S 26 7 - 45 U/L 10/17/2022 2:34 PM POCKETS AND PIECES NECKTIE OPERATOR DTL Bilirubin, Total, S 0.3 <=1.2 mg/dL 10/17/2022 2:34 PM POCKETS AND PIECES NECKTIE OPERATOR DTL Blood (Blood, Venous) 10/17/2022 1:10 PM POCKETS AND PIECES NECKTIE OPERATOR 10/17/2022 1:52 PM POCKETS AND PIECES NECKTIE OPERATOR us Jamie López APRN, C.N.P. LAB BLOOD ADD-ON Fin al Result [facility] [employer] [address] [address] [place], [place] [address] [address] [place] [address] * BI Breast Screening Bilateral (01/01/2008 9:25 [...] Indications: ORIGINAL REPORT - 06-Jan-2008 09:16:00 This [facility] exam was historically loaded. BILATERAL SCREENING MAMMOGRAM: Breast symptoms: None. Previous mammography: 11/15 and 08/13. Breast parenchyma: Fatty/mild densities. Comment: Minor postoperative mammoplasty changes noted in both breasts, all findings stable in the past year. IMAGING Procedure Note ProviderBetsy M.D. - 11/10/2017 01-Jan-2008 09:25:00 Exam: Mammo Screen Bilat Indications: ORIGINAL REPORT - 06-Jan-2008 09:16:00 This [facility] ([facility]) exam was historically loaded. BILATERAL SCREENING [...] Indicated Protective Environment 12/06/2022 3 Insurance MEDICARE [facility] Care Teams Paradichlorobenzene Machine Operator Relationship Specialty Start Date End Date Elsewhere, Pcp PCP - General Family Medicine 09/19/20
--- OUTSIDE RECORDS SUMMARY | 2024-07-05 12:24 | XMS_ITS ---
Author Organization [facility] Address [address] [place] [address] Care Team Providers Care Sap Crm Developer Name Role Phone Unavailable Unavailable Unavailable Surgery Details Not on file Complications Check Surgery Details section. Procedure Estimated Blood Loss Check Surgery Details section. Procedure Findings Check Surgery Details section. Procedure Specimens Taken Check Surgery Details section.
--- OUTSIDE RECORDS SUMMARY | 2024-07-05 12:24 | XMS_ITS | Encounter Summary ---
Author Organization [facility] Address [address] [place] [address] Care Team Providers Care National Service Officer Name Role Phone Elsewhere, Pcp Primary Care Provider Unavailabl e Reason for Visit * Reason Onset Date Comments Lab Monitoring 03/31/2024 Collected 2023 Encounter Details Date Type Department Care Team (Latest Contact Info) Description 03/31/2024 Clinical Communication Division of Rheumatology in [place], [place] [address] [place] [address] Jamie López, METAPHYSICIST, C.N.P. [address] [place] [phone] Lab Monitoring (Collected 03/30/2024) Social History Tobacco Use Types Packs/Day Years Used Date Smoking Tobacco: Former Cigarettes 0 0 08/25/2000 - 08/25/2000 Smokeless Tobacco: Never Alcohol Use Standard Drinks/Week Comments No 0 [...] 06/11/2022 How often do you attend chur or restorationist services? 1 to 4 times per year 06/11/2022 Do you belong to any clubs o r organizations such as yazidism groups, unions, fraternal or athletic groups, or [...] and heating? Not hard at all 07/07/2023 [facility] Questionnaire Answer Date [...] your living situation today? I have a [facility] place to live 07/07/2023 Education Answer Date Recorded What is the highest level of school you have completed or the highest degree you have received? 8th grade 06/11/2022 Comments No Sex and Gender Information Value Date Recorded Sex Assigned at Female 02/25/2018 8:11 PM CDT Legal Sex Female 1:30 PM ROLLER REPAIRER Gender Identity Female 02/25/2018 8:11 PM CDT Sexual Orientation Straight 02/25/2018 8: 11 PM CDT documented as of this encounter Miscellaneous Notes * Telephone Encounter - Mandi Fraser RElla. - 04/02/2024 10:10 AM CDT Documentation note only, patient not contacted ASSESSMENT Rheumatology monitoring labs completed at an external lab on 03/30/2024 were reviewed per Rheumatology division parameters. Labs reviewed: absolute neutrophil count, ALT, AST, creatinine, hemoglobin, leukocytes, platelets External labs are viewable in Care Everywhere. Labs Tab of Chart Review PLAN Patient to continue with current plan of care. Patient next due for monitoring labs three months after last monitoring labs.. documented in this encounter Plan of Treatment Not on file documented as of this encounter Visit Diagnoses Not on filedocumented in this encounter Additional Health Concerns Infection Onset Date Last Indicated Resolved Time Protective Environment 12/06/2022 12/06/2022 Assessment Noted Time PHQ-9 Depression Total Score: 13 015 10:43 AM CDT documented as of this encounter Care Teams National Service Officer Relationship Specialty Start Date End Date Elsewhere, Pcp PCP - General Family Medicine 09/19/20 documented as of this encounter
[2024-07-05] MEDS: 0.9 % SODIUM CHLORIDE 500 ML 500 ML IV (12:28)
[2024-07-05 12:38] LABS: Lactate Sepsis w/Reflex* 1.2 mmol/L (0.5-1.9)
[2024-07-05 12:44] LABS: Basophils Absolute Auto 0.01 K/uL (0.00-0.30); Basophils Percent Auto 0.1 % (0.0-3.0); Eosinophils Absolute Auto 0.01 K/uL (0.00-0.50); Eosinophils Percent Auto 0.1 % (0.0-7.0); Hemoglobin* 14.9 gm/dL (12.0-16.0); Immature Granulocytes Abs Auto 0.02 K/uL (0.00-0.30); Immature Granulocytes Pct Auto 0.2 %; Lymphocytes Percent Auto 8.3 % (20-44); Mean Corpuscular HGB Conc 34 gm/dL (32-36); Mean Corpuscular Hemoglobin 31 pg (26-34); Mean Corpuscular Volume 93 fL (80-100); Monocytes Percent Auto 4.3 % (0.0-11.0); Platelet Count* 213 K/uL (140-440); RDW Coefficient of Variation % 12.8 % (11.5-15.5); Red Blood Count 4.75 m/uL (4.00-5.20); White Blood Count* 8.28 K/uL (4.50-11.00)
[2024-07-05 12:57] LABS: Slide Review Reflex No
[2024-07-05 13:05] LABS: Albumin* 4.3 g/dL (3.3-5.0); Chloride* 105 mmol/L (96-114)
[2024-07-05 13:06] LABS: Potassium* 3.8 mmol/L (3.6-5.1); Sodium* 138 mmol/L (135-149)
[2024-07-05 13:07] LABS: Creatinine* 0.6 mg/dL (0.5-1.5); Est. Creatinine Clearance* 58.09; Estimated Glomerular Filt Rate 101 ml/min
[2024-07-05 13:08] LABS: Alkaline Phosphatase* 61 U/L (40-150); Anion Gap 12 mEq/L (7-15); Aspartate Amino Transferase* 34 U/L (12-35); Bilirubin Direct* 0.4 mg/dL (0.0-0.5); Bilirubin Total* 0.7 mg/dL (0.1-1.5); Carbon Dioxide* 21 mmol/L (20-32); Total Protein* 6.9 g/dL (6.0-8.3)
[2024-07-05 13:09] LABS: Alanine Aminotransferase* 29 U/L (4-35); Blood Urea Nitrogen* 9 mg/dL (7-30); Calcium* 8.7 mg/dL (8.4-10.6); Glucose* 151 mg/dL (60-115); Lipase* 63 U/L (23-300); Magnesium* 2.1 mg/dL (1.5-2.6)
[2024-07-05 13:11] LABS: C Reactive Protein* 0.8 mg/dL (0.5-1.0)
[2024-07-05] MEDS: KETOROLAC 15 MG/ML inj IVP (13:20)
[2024-07-05] MEDS: ONDANSETRON 2 MG/ML inj 4 MG IVP (13:21)
[2024-07-05 13:26] VITALS: BP 127/76; PULSE 80; RESP 18; O2SAT 95
--- NOTE | 2024-07-05 13:36 | ED.GENADULT ---
HPI - General Adult General Date Seen: 07/05/24 Chief complaint: Abdominal Pain Stated complaint: abdominal pain/nausea/vomiting Time Seen by Provider: 07/05/24 11:31 Source: patient Mode of arrival: ambulatory Limitations: no limitations History of Present Illness HPI narrative: Patient is a 64-year-old woman who presents for evaluation of GI symptoms. She says she has had upper abdominal pain for about 5 days, initially symptoms started with diarrhea which became yellow in color after couple of days. She has had nausea but no vomiting. No fevers. No bloody stools. She has a remote history of pancreatitis cause unknown. She is status post cholecystectomy. Seen at urgent care and sent here for further evaluation. No urinary symptoms, no breathing difficulties or chest pain. Denies other abdominal surgeries aside from cholecystectomy. Related Data Home Medications ?Medication ?Instructions ?Recorded ?Confirmed acetaminophen 500 mg capsule 1,000 mg PO Q6H PRN 02/21/22 07/05/24 alprazolam 0.25 mg tablet 0.5 mg PO BID PRN anxiety 02/21/22 07/05/24 ascorbic acid (vitamin C) 500 mg 1,000 mg PO DAILY 02/21/22 07/05/24 capsule blood sugar diagnostic ([facility] 02/21/22 07/07/23 Ultra Test strips) epinephrine 0.3 mg/0.3 mL 0.3 ml IM Q5-15M PRN 02/21/22 07/05/24 injection, auto-injector erythromycin 5 mg/gram (0.5 %) eye 1 applic ophthalmic (eye) .QHS 02/21/22 07/05/24 ointment estradiol 1 mg tablet 1 mg PO DAILY 02/21/22 07/05/24 folic acid 1 mg tablet 1 mg PO DAILY 02/21/22 07/05/24 ibuprofen 800 mg tablet 800 mg PO TID-QID PRN 02/21/22 07/05/24 lancets 33 [facility]21/22 07/07/23 Plus Lancet) latanoprost 0.005 % eye drops 1 drp ophthalmic (eye) .qhs 02/21/22 07/05/24 metformin 500 mg tablet,extended 500 mg PO BID 02/21/22 07/05/24 release 24 hr methotrexate sodium 25 mg/mL 25 mg subcut .WEEKLY 02/21/22 07/05/24 injection solution multivitamin 1 tab PO DAILY 02/21/22 07/05/24 nystatin 100,000 unit/gram topical 1 applic topical BID 02/21/22 07/05/24 cream pantoprazole 40 mg tablet,delayed 40 mg PO .Q 24 02/21/22 07/05/24 release prednisone 5 mg tablet 7.5 mg PO DAILY 02/21/22 07/05/24 rosuvastatin 10 mg tablet 10 mg PO .QHS 02/21/22 07/05/24 carbamazepine 200 mg 200 mg PO BID 03/22/22 07/05/24 capsule,extended release [id number] baclofen 5 mg tablet 5 mg PO BID 12/21/22 07/05/24 baclofen 10 mg tablet 10 mg PO BID 07/05/24 07/05/24 oxcarbazepine 300 mg tablet 300 mg PO BID 07/05/24 07/05/24 Allergies Allergy/AdvReac Type Severity Reaction Status Date / Time bisacodyl Allergy Severe lump in Verified 07/05/24 11:13 throat etanercept Allergy Severe throat Verified 07/05/24 11:13 closing pregabalin Allergy Severe throat Verified 07/05/24 11:13 closing red dye Allergy Severe Verified 07/05/24 11:13 bupropion Allergy Intermediate throat Verified 07/05/24 11:13 closing oxycodone Allergy Intermediate Vomiting Verified 07/05/24 11:13 diazepam Allergy Mild Rash Verified 07/05/24 11:13 hydromorphone Allergy Mild Vomiting Verified 07/05/24 11:13 meperidine Allergy Mild itching Verified 07/05/24 11:13 morphine Allergy Mild Rash Verified 07/05/24 11:13 abatacept Allergy Unknown dizziness, Verified 07/05/24 11:13 parasthesias, angioedema adalimumab Allergy Unknown Verified 07/05/24 11:13 benzyl alcohol Allergy Unknown Verified 07/05/24 11:13 blue dye Allergy Unknown Verified 07/05/24 11:13 cyclobenzaprine Allergy Unknown Verified 07/05/24 11:13 diphenhydramine Allergy Unknown elevated Verified 07/05/24 11:13 BP, lump in throat, lips and tongue tingles duloxetine Allergy Unknown Verified 07/05/24 11:13 rituximab Allergy Unknown Verified 07/05/24 11:13 tromethamine Allergy Unknown Verified 07/05/24 11:13 carbamazepine Allergy Cramping Verified 07/05/24 11:13 of the Muscles gadoterate meglumine (From Allergy Difficulty Verified 07/05/24 11:13 Dotarem) Breathing varicella virus vaccine live Allergy Verified 07/05/24 11:13 imaging contrast Allergy Severe tongue Uncoded 07/07/23 11:26 swelling, chest pressure, difficulty swallowing shingles vaccine Allergy Severe Swelling Uncoded 07/07/23 11:26 of Lip/Tongue/Throat Review of Systems Status of ROS: Reports: 10 or more systems reviewed and unremarkable except as noted in History and below [facility] Medical History (Updated 07/05/24 @ 14:34 by Tasneem Billings MD) Pancreatitis ?K85.90 - Acute pancreatitis without necrosis or infection, unspecified (ICD-10) Enteritis (03/10/13) ?K52.9 - Noninfective gastroenteritis and colitis, unspecified (ICD-10) Viral gastroenteritis ?A08.4 - Viral intestinal infection, unspecified (ICD-10) Polypharmacy ?Z79.899 - Other oysterman (current) drug therapy (ICD-10) Palpitations ?R00.2 - Palpitations (ICD-10) Normal nuclear stress test Multiple bruises ?T07.XXXA - Unspecified multiple injuries, initial encounter (ICD-10) Irritation of pharynx ?J39.2 - Other diseases of pharynx (ICD-10) Gastroenteritis ?K52.9 - Noninfective gastroenteritis and colitis, unspecified (ICD-10) Fainting spell ?R55 - Syncope and collapse (ICD-10) Chronic, continuous use of opioids ?F11.90 - Opioid use, unspecified, uncomplicated (ICD-10) Chronic abdominal pain ?R10.9 - Unspecified abdominal pain (ICD-10) ?G89.29 - Other chronic pain (ICD-10) Chest pain ?R07.9 - Chest pain, unspecified (ICD-10) Back pain ?M54.9 - Dorsalgia, unspecified (ICD-10) Allergic reaction to contrast material ?T50.8X5A - Adverse effect of diagnostic agents, initial encounter (ICD-10) Adverse reaction to drug ?T50.905A - Adverse effect of unspecified drugs, medicaments and biological substances, initial encounter (ICD-10) Adverse effect of drug ?T50.905A - Adverse effect of unspecified drugs, medicaments and biological substances, initial encounter (ICD-10) Acute chest wall pain ?R07.89 - Other chest pain (ICD-10) Drug-induced hypersensitivity reaction ?T78.40XA - Allergy, unspecified, initial encounter (ICD-10) Fusion of lumbar spine ?M43.26 - Fusion of spine, lumbar region (ICD-10) Encounter for cholecystectomy ?Z76.89 - Persons encountering health services in other specified circumstances (ICD-10) Tachycardia ?R00.0 - Tachycardia, unspecified (ICD-10) Drug allergy, multiple ?Z88.9 - Allergy status to unspecified drugs, medicaments and biological substances (ICD-10) Medication intolerance ?Z78.9 - Other specified health status (ICD-10) Lumbar radiculopathy ?M54.16 - Radiculopathy, lumbar region (ICD-10) Drug-induced hyperglycemia ?R73.9 - Hyperglycemia, unspecified (ICD-10) ?T50.905A - Adverse effect of unspecified drugs, medicaments and biological substances, initial encounter (ICD-10) GERD (gastroesophageal reflux disease) ?K21.9 - Gastro-esophageal reflux disease without esophagitis (ICD-10) Non-occlusive coronary artery disease ?I25.10 - Atherosclerotic heart disease of [place] coronary artery without angina pectoris (ICD-10) Chronic steroid use Chronic pain ?G89.29 - Other chronic pain (ICD-10) Cephalgia ?R51.9 - Headache, unspecified (ICD-10) Anxiety ?F41.9 - Anxiety disorder, unspecified (ICD-10) Serotonin syndrome ?G25.79 - Other drug induced movement disorders (ICD-10) Incarcerated umbilical hernia ?K42.0 - Umbilical hernia with obstruction, without gangrene (ICD-10) Syncope ?R55 - Syncope and collapse (ICD-10) Fibromyalgia ?M79.7 - Fibromyalgia (ICD-10) Atypical chest pain ?R07.89 - Other chest pain (ICD-10) Thoracic back pain ?M54.6 - Pain in thoracic spine (ICD-10) Dyspnea on exertion ?R06.09 - Other forms of dyspnea (ICD-10) Abdominal pain ?R10.9 - Unspecified abdominal pain (ICD-10) Rheumatoid arthritis ?M06.9 - Rheumatoid arthritis, unspecified (ICD-10) Surgical History (Updated 03/11/23 @ 14:20 by Sarah Palmer) S/P lumbar fusion ?Z98.1 - Arthrodesis status (ICD-10) History of hysterectomy ?Z90.710 - Acquired absence of both cervix and uterus (ICD-10) History of laparoscopic cholecystectomy (02/14/11) ?Z90.49 - Acquired absence of other specified parts of digestive tract (ICD-10) History of umbilical hernia repair (03/26/13) ?Z98.890 - Other specified postprocedural states (ICD-10) ?Z87.19 - Personal history of other diseases of the digestive system (ICD-10) History of biopsy of temporal artery (01/03/22) ?Z98.890 - Other specified postprocedural states (ICD-10) S/P DANIELA-BSO ?Z90.710 - Acquired absence of both cervix and uterus (ICD-10) ?Z90.722 - Acquired absence of ovaries, bilateral (ICD-10) ?Z90.79 - Acquired absence of other genital organ(s) (ICD-10) History of tonsillectomy ?Z90.89 - Acquired absence of other organs (ICD-10) Hx of breast reduction, elective (10/24/04) ?Z98.890 - Other specified postprocedural states (ICD-10) S/P lumpectomy of breast ?Z98.890 - Other specified postprocedural states (ICD-10) Social History Smoking Status: Former smoker Do you use any of these nicotine containing products: None How often do you have a drink containing alcohol: never AUDIT-C Alcohol total score: 0 Non-prescribed substance use: denies use service: No Exam Narrative: Exam Narrative: Vital signs reviewed In general, alert, nontoxic woman. She looks comfortable. Breathing easily. Head: Normocephalic, atraumatic. Eyes: Sclera clear. Pupils equal and reactive. ENT: Mucous membranes moist. Neck: Supple without adenopathy. Heart: Regular rate and rhythm without murmur. Lungs: Clear. No increased work of breathing, crackles or wheezes. Abdomen: Soft, nondistended. Mild upper abdominal tenderness without rebound guarding or rigidity. Extremities: Well perfused, pulses intact. No significant edema. Neurologic: Alert, conversant. Speech fluent, face symmetric. Moves all extremities equally. Skin: Warm, dry well perfused. Affect: Normal. Const: Vital Signs, click to edit/add: Vital Signs - 24 hr 07/05/24 11:05 07/05/24 13:26 Temperature 98.0 F Pulse Rate [Pulse Oximeter] 109 H 80 Respiratory Rate 18 18 Blood Pressure [Ri ght Upper Arm] 128/86 127/76 Pulse Oximetry 97 95 Oxygen Delivery Me thod Room Air Room Air Documenting provider has reviewed patient's vital signs: yes Course Course ED Course: Records were reviewed, she has a massive number of listed allergies including intolerance is to all pain medications. She did have some Zofran and Toradol here as well as 500 mL of normal saline. I ordered labs as well as a CT of the abdomen without contrast given history of contrast allergy. Her white blood cell count is normal 8.3, hemoglobin is normal at 14.9. Metabolic panel is normal, BUN is 9, creatinine is 0.6. Blood sugar 151. Lactate 1.2. Magnesium is normal, LFTs are normal, lipase is normal. Point of care troponin is 0 and an EKG done here shows a sinus rhythm, ventricular rate of 86, no acute ST segment changes. Unremarkable T-waves. CT scan by my review did not show evidence of inflammatory changes, obstruction, kidney stone. Final radiology read is notable for no findings to explain her current symptoms. No evidence of pancreatitis, bowel obstruction, kidney stone, pyelonephritis, diverticulitis, colitis, appendicitis etcetera. She does have a subtle renal finding and renal ultrasound is recommended to further evaluate this. This can reasonably be done as an outpatient and I do not think is directly because of her current symptoms. Urinalysis is still pending. At this time, symptoms seem more likely to be related to a gastroenteritis. Urinalysis is negative. She is feeling improved, comfortable going home. Zofran prescribed. I have discussed the renal finding with her, given her copy of the CT scan and recommended that she discuss with primary care to get an outpatient renal ultrasound scheduled. Return for severe worsening symptoms, see primary care if not improved over the next week. Vital Signs Vital signs: Initial Vital Signs Temperature 98.0 F 07/05/24 11:05 Temperature Source Temporal Artery Scan 07/05/24 11:05 Pulse Rate 109 H 07/05/24 11:05 Respiratory Rate 18 07/05/24 11:05 Blood Pressure 128/86 07/05/24 11:05 Blood Pressure Mean 100 07/05/24 11:05 Blood Pressure Position Sitting 07/05/24 11:05 Pulse Oximetry 97 07/05/24 11:05 Oxygen Delivery Method Room Air 07/05/24 11:05 Vital Signs Temperature 98.0 F 07/05/24 11:05 Pulse Rate 109 H 07/05/24 11:05 Respiratory Rate 18 07/05/24 11:05 Blood Pressure 128/86 07/05/24 11:05 Pulse Oximetry 97 07/05/24 11:05 Oxygen Delivery Method Room Air 07/05/24 11:05 Temperature 98.0 F 07/05/24 11:05 Pulse Rate 80 07/05/24 13:26 Respiratory Rate 18 07/05/24 13:26 Blood Pressure 127/76 07/05/24 13:26 Pulse Oximetry 95 07/05/24 13:26 Oxygen Delivery Method Room Air 07/05/24 13:26 Medications Administered Medications: Discontinued Medications Generic Name Dose Route Start Last Admin Trade Name Freq PRN Reason Stop Dose Admin Sodium Chloride 500 mls @ 500 mls/hr 07/05/24 12:06 07/05/24 13:28 0.9 % Sodium Chloride 500 Ml IV 07/05/24 13:05 Infused .Q1H ONE Infusion Ketorolac Tromethamine 15 mg 07/05/24 13:14 07/05/24 13:20 Ketorolac 15 Mg/Ml Inj IVP 07/05/24 13:15 15 mg ONCE ONE Administration Ondansetron HCl 4 mg 07/05/24 13:14 07/05/24 13:21 Ondansetron 2 Mg/Ml Inj IVP 07/05/24 13:15 4 mg ONCE ONE Administration Medical Decision Making Lab Data Labs: Lab Results 07/05/24 07/05/24 07/05/24 Range/Units 12:07 12:20 13:44 WBC 8.28 (4.50-11.00) K/uL RBC 4.75 (4.00-5.20) m/uL Hgb 14.9 (12.0-16.0) gm/dL Hct 44.0 (33.0-51.0) % MCV 93 (80-100) fL MCH 31 (26-34) pg MCHC 34 (32-36) gm/dL RDW Coeff of Antony 12.8 (11.5-15.5) % Plt Count 213 (140-440) K/uL Neut % (Auto) 87.0 H (42.0-72.0) % Lymph % (Auto) 8.3 L (20-44) % [place] % (Auto) 4.3 (0.0-11.0) % Eos % (Auto) 0.1 (0.0-7.0) % Baso % (Auto) 0.1 (0.0-3.0) % Neut # (Auto) 7.20 H (1.7-7.0) K/uL Lymph # (Auto) 0.70 L (0.90-2.90) K/uL [place] # (Auto) 0.40 (0.00-0.90) K/UL Eos # (Auto) 0.01 (0.00-0.50) K/uL Baso # (Auto) 0.01 (0.00-0.30) K/uL Abs Immat Gran (auto) 0.02 (0.00-0.30) K/uL Imm/Tot Granulo (auto) 0.2 % Sodium 138 (135-149) mmol/L Potassium 3.8 (3.6-5.1) mmol/L Chloride 105 (96-114) mmol/L Carbon Dioxide 21 (20-32) mmol/L Anion Gap 12 (7-15) mEq/L BUN 9 (7-30) mg/dL Creatinine 0.6 (0.5-1.5) mg/dL Estimated Creat Clear 58.09 Estimated GFR 101 ml/min Glucose 151 H (60-115) mg/dL Lactate 1.2 (0.5-1.9) mmol/L Calcium 8.7 (8.4-10.6) mg/dL Magnesium 2.1 (1.5-2.6) mg/dL Total Bilirubin 0.7 (0.1-1.5) mg/dL Direct Bilirubin 0.4 (0.0-0.5) mg/dL AST 34 (12-35) U/L ALT 29 (4-35) U/L Alkaline Phosphatase 61 (40-150) U/L C-Reactive Protein 0.8 (0.5-1.0) mg/dL Total Protein 6.9 (6.0-8.3) g/dL Albumin 4.3 (3.3-5.0) g/dL Lipase 63 (23-300) U/L Urine Color Yellow (Yellow) Urine Appearance Clear (Clear) Urine pH 6.0 (5.0-8.5) Ur Specific [place] 1.020 (1.000-1.030) Urine Protein Negative (Negative) Urine Glucose (UA) Negative (Negative) Urine Ketones 4+ A (Negative) Urine Blood Negative (Negative) Urine Nitrite Negative (Negative) Urine Bilirubin Negative (Negative) Urine Urobilinogen 4.0 A (0.2-1.0) Ur Leukocyte Esterase Negative (Negative) Urine RBC 0-2 (0-2) Urine WBC 0-2 (0-5) Ur Squamous Epith Cells Few (None-Few) Urine Bacteria Few A (None) POC Troponin I 0.00 L (0.01-0.04) ng/ml Discharge Plan Discharge Clinical Impression: Gastroenteritis Patient Disposition: Home, Self-Care Condition: Improved Instructions: Acute Nausea and Vomiting (DC) Additional Instructions: Your test today are all reassuring, there is no evidence of pancreatitis, liver disease, diverticulitis, bowel obstruction or other acute problems. At this time, I suspect her symptoms are more likely viral, gastroenteritis. I have prescribed some Zofran for you to use at home for nausea. You did have an incidental finding on CT scan, this is unrelated your current symptoms but the radiologist is recommending that you have an ultrasound to evaluate your left kidney. This can be done through your primary doctor. Return to the ER at any time for severe or significantly worsening symptoms. See your primary doctor if not improving over the next week. Prescriptions: No Action carbamazepine 200 mg capsule, ER multiphase 12 hr 200 mg PO BID baclofen 5 mg tablet 5 mg PO BID alprazolam 0.25 mg tablet 0.5 mg PO BID PRN (Reason: anxiety) Patient Comments: TAKE 1 TO 2 TABLETS BY MOUTH TWICE DAILY NEEDED FOR ANXIETY. Takes daily at bedtime per pt report, 06/19/22 ([facility] [place] OneTouch Ultra Test Strip MISCELLANEOUS Patient Comments: TEST FOUR TIMES DAILY estradiol 1 mg tablet 1 mg PO DAILY folic acid 1 mg tablet 1 mg PO DAILY Patient Comments: TAKE 1 TABLET BY MOUTH DAILY. latanoprost 0.005 % drops 1 drp OPHTHALMIC (EYE) .qhs Patient Comments: INSTILL 1 DROP IN EACH EYE AT BEDTIME (DME) lancets [OneTouch Delica Plus Lancet] [facility] MISCELLANEOUS Patient Comments: TEST FOUR TIMES DAILY metformin 500 mg tablet extended release 24 hr 500 mg PO BID Patient Comments: TWICE A DAY WITH MEALS methotrexate sodium 25 mg/mL solution 25 mg subcut .WEEKLY nystatin 100,000 unit/gram cream 1 applic TOPICAL BID Patient Comments: APPLY TOPICALLY TO THE AFFECTED AREA TWICE DAILY pantoprazole 40 mg tablet,delayed release (DR/EC) 40 mg PO .Q 24 Patient Comments: TAKE 1 TABLET BY MOUTH TWICE DAILY BEFORE MEALS prednisone 5 mg tablet 7.5 mg PO DAILY rosuvastatin 10 mg tablet 10 mg PO .QHS multivitamin Tablet 1 tab PO DAILY ibuprofen 800 mg tablet 800 mg PO TID-QID PRN acetaminophen 500 mg capsule 1,000 mg PO Q6H PRN ascorbic acid (vitamin C) 500 mg capsule 1,000 mg PO DAILY epinephrine 0.3 mg/0.3 mL auto-injector 0.3 ml IM Q5-15M PRN Rx Instructions: do not exceed 3 doses per episode erythromycin 5 mg/gram (0.5 %) ointment 1 applic ophthalmic (eye) .QHS oxcarbazepine 300 mg tablet 300 mg PO BID baclofen 10 mg tablet 10 mg PO BID Follow Up/Referrals: Amarilys Duckworth PA-C [Primary Care Provider] - Stand Alone Forms: [facility] Info Instructions
[2024-07-05 13:56] LABS: Appearance Urine Clear (Clear); Bilirubin Urine Negative (Negative); Blood Urine Negative (Negative); Color Urine Yellow (Yellow); Glucose Urine Negative (Negative); Ketones Urine 4+ (Negative); Leukocyte Esterase Urine Negative (Negative); Nitrite Urine Negative (Negative); Protein Urine Negative (Negative)
[2024-07-05 14:09] LABS: Bacteria Urine Few; RBC Urine 0-2 (0-2); Squamous Epithelial Cell Urine Few (None-Few); WBC Urine 0-2 (0-5)
== END 2024-07-05 14:44 | disposition home or self-care (01) ==
PROVIDERS: Emergency Provider Emergency Medicine; PCP Physician Assistant Medical
DX: K52.9 Noninfective gastroenteritis and colitis, unspecified (principal)
CPT/HCPCS: 36415; 74176; 80048; 80076; 81001; 83605; 83690; 83735; 84484; 85025; 86140; 87086; 93005; 96361; 96374; 96375; 99284; 99285; J1885; J2405; J7030

== ENCOUNTER 2024-08-24 09:38 | Outpatient (CLI) | payer MEDICARE, MEDICAID, SELFPAY ==
--- NOTE | 2024-08-24 10:15 | CRLHL7_ITS ---
For Patients: As a result of the Century Cures Act, medical imaging exams and procedure reports are released immediately into your electronic medical record. You may view this report before your referring provider. If you have questions, please contact your health care provider. INDICATION: Lesion left kidney. COMPARISON: CT abdomen and pelvis without and with contrast 03/04/2024, 03/05/2021 and 10/19/2015; CT abdomen pelvis with intravenous contrast 11/17/2008. TECHNIQUE: Precontrast T1 and T2 weighted imaging; T2 haste imaging; diffusion-weighted imaging; in and out of phase imaging; postcontrast imaging including subtraction; 15 cc of dotarem contrast was injected. FINDINGS: A 2.6 cm solid enhancing lesion posterior lower pole left kidney highly concerning for renal cell carcinoma. Liver, spleen and pancreas are unremarkable. Status post cholecystectomy. No adrenal pathology. Right kidney is unremarkable. No retroperitoneal lymphadenopathy. No evidence of abdominal ascites. Instrumentation of the lower lumbar spine. IMPRESSION: 1. 2.6 cm solid enhancing lesion lower pole left kidney; highly concerning for renal cell carcinoma. 2. Status post cholecystectomy. Dictated by Jayne Fleming MD @ 08/24/2024 2:03:12 PM (Electronically Signed)
== END 2024-08-24 09:39 | disposition home or self-care (01) ==
PROVIDERS: PCP Physician Assistant Medical; Visit Provider Physician Assistant Medical
DX: N28.9 Disorder of kidney and ureter, unspecified (principal)
CPT/HCPCS: 74183; A9575